=== PATIENT | male | born 1990 | race Caucasian/White ===

== ENCOUNTER 2021-12-29 18:56 | Inpatient (IN) | payer OTHER, SELFPAY ==
--- NOTE | ~2021-12-29 | XR_ITS ---
EXAMINATION: XR CHEST CLINICAL INFORMATION: Covid COMPARISON: None TECHNIQUE: Frontal portable view of the chest was obtained. 2205 hours FINDINGS: No significant abnormality is noted involving the heart, lungs, mediastinum, bony thorax or soft tissues. XR/XR chest 1V IMPRESSION: Unremarkable examination.
[2021-12-29 19:12] VITALS: BP 114/82; PULSE 103; RESP 20; TEMP 36.9; O2SAT 94; BMI 27.8
[2021-12-29 19:36] LABS: COVID-19 Test Positive (Negative)
--- NOTE | 2021-12-29 19:40 | ED.PSYCH ---
HPI - Psych General Chief Complaint: Psychiatric Symptoms Stated Complaint: SI Time Seen by Provider: 12/29/21 19:40 Source: patient Mode of arrival: ambulatory Limitations: no limitations History of Present Illness HPI Narrative: patient presenting to the emergency department for evaluation of suicidal ideations with a plan to overdose. He reports having anxiety and feeling sweaty, feeling like he is going through alcohol withdrawal. States that he drinks about 3 pt of vodka daily, and states that he last drank yesterday night. In addition, he has been injecting IV heroin. He is feeling overwhelmingly depressed, and anxious. he states that he was told by some friends that he had a seizure last night she does not recall, he does endorse a history of alcohol withdrawal seizures. He is reporting midsternal chest pain, that is constant, has been present for 10 days. Today he developed a headache and some nasal congestion. Denies fevers, chills, sore throat, shortness of breath, dyspnea on exertion, nausea, vomiting, abdominal pain, dysuria diarrhea, constipation, generalized weakness. Related Data Home Medications Medication Instructions Recorded Confirmed duloxetine 60 mg capsule,delayed 2 cap PO DAILY 12/29/21 12/29/21 release gabapentin 400 mg capsule 800 mg PO TID 12/29/21 12/29/21 quetiapine 200 mg tablet 1 tab PO BEDTIME 12/29/21 12/29/21 Allergies Allergy/AdvReac Type Severity Reaction Status Date / Time No Known Allergies Allergy Unverified 05/27/20 17:41 [No Known Allergies*] PMFSH Social History Social History Advance Directives: No Advance Directives Information Provided: No Physical Exam Vital Signs: Vital Signs: Last Vital Signs Temp 98.5 F 12/29/21 19:12 Pulse 103 H 12/29/21 19:12 Resp 20 12/29/21 19:12 BP 114/82 12/29/21 19:12 Pulse Ox 94 12/29/21 19:12 BMI result Body Mass Index 27.8 Course Course Course Narrative: Patient is a 31-year-old male with a past medical history of alcoholism, substance abuse, presenting to emergency department for evaluation of anxiety, diaphoresis, chest pain,, and suicidal ideations with to overdose. Patient with a history of alcoholism, reporting last alcohol consumption yesterday evening, history of alcohol with trial seizures in the past, reportedly had a seizure last night. Will obtain urine toxicology, ethanol level, placed on seizure precautions, and will monitor CIWA, obtain basic labs including CBC, BMP, troponin and EKG to evaluate for ACS/ ischemia, chest x-ray to exclude consolidation, infiltrate. Reevaluation(s) Reevaluation #1: Patient noted to be COVID-19 positive. states he has been vaccinated x2 with Moderna., uncertain of last vaccine date. Having difficulty obtaining labs, nursing staff attempting at this time. Patient very agitated and anxious, tremulous, plab to medicate with Ativan IM. Time: 20:00 Reevaluation #2: Patient signed out to Dr. Mares, pending labs and chest x-ray. Patient will additionally need to be evaluated by crisis and N for suicidal ideation. Time: 21:15 [facility] - Psych Lab Data Labs: Lab Results 12/29/21 12/29/21 12/29/21 Range/Units 19:25 19:37 19:37 Urine Color YELLOW Urine Appearance CLEAR Urine pH 5.5 (5.0-8.0) Ur Specific [place] >= 1.030 H (1.005-1.025) Urine Protein TRACE (NEG-TRACE) MG/DL Urine Glucose (UA) NEG (NEG) MG/DL Urine Ketones 5 (NEG) MG/DL Urine Blood NEG (NEG) Urine Nitrite NEG (NEG) Ur Leukocyte Esterase NEG (NEG) Urine Opiates Screen POSITIVE H (Not Detect) Urine Fentanyl Screen POSITIVE H (Not Detect) Ur Barbiturates Screen Not Detected (Not Detect) Ur Phencyclidine Scrn Not Detected (Not Detect) Ur Amphetamines Screen Not Detected (Not Detect) U Benzodiazepines Scrn Not Detected (Not Detect) Urine Cocaine Screen POSITIVE H (Not Detect) U Marijuana (THC) Screen Not Detected (Not Detect) COVID-19 (LUIS) Positive A (Negative) COVID-19 Clin Com See Note Discharge Plan Discharge Clinical Impression: COVID-19, Suicidal ideation, Polysubstance abuse Patient Disposition: Still a Patient Prescriptions: No Action gabapentin 400 mg capsule 800 mg PO TID 0RF duloxetine 60 mg capsule,delayed release(DR/EC) 2 cap PO DAILY 0RF quetiapine 200 mg tablet 1 tab PO BEDTIME 0RF
[2021-12-29 19:46] LABS: Appearance Urine CLEAR; Color Urine YELLOW; Glucose Urine UA NEG (NEG); Leukocyte Esterase Urine NEG (NEG); Nitrite Urine NEG (NEG); PH 5.5 (5.0-8.0); Specific Gravity - Urine >= 1.030 (1.005-1.025); Urine Blood NEG (NEG); Urine Ketones 5 MG/DL (NEG); Urine Protein TRACE MG/DL (NEG-TRACE)
[2021-12-29 19:59] LABS: Amphetamine Screen Urine Not Detected (Not Detect); Barbiturates, Urine Not Detected (Not Detect); Benzodiazepines Screen Urine Not Detected (Not Detect); Cannabinoid Screen Urine Not Detected (Not Detect); Cocaine Screen Urine POSITIVE (Not Detect); Fentanyl, urine POSITIVE (Not Detect); Opiate Screen Urine POSITIVE (Not Detect); Phencyclidine Screen Urine Not Detected (Not Detect)
--- NOTE | 2021-12-29 20:14 | ECG_ITS ---
Test Reason : EKG Blood Pressure : / mmHG Vent. Rate : 114 BPM Atrial Rate : 500 BPM P-R Int : 178 ms QRS Dur : 096 ms QT Int : 386 ms P-R-T Axes : 136 058 044 degrees QTc Int : 532 ms Poor data quality Undetermined rhythm Anterior infarct , age undetermined Prolonged QT Abnormal ECG When compared with ECG of 11-NOV-2019 16:29, Poor data quality in current ECG precludes serial comparison Repeat EKG Referred By: Nany Soriano Electronically Signed By:MARY AREVALO MD
[2021-12-29] MEDS: LORazepam 2 MG/ML VIAL 1 MG IM (20:33)
--- NOTE | 2021-12-29 21:00 | PC.NURSE ---
Pt medicated with IV ativan Pt very hard stick 2 RN attempted with no success Per REJI De Los Santos, ok to just get blood for now and hold on IV until blood work results oxygen equipment technician attempted with no success Another oxygen equipment technician currently attempting
--- NOTE | 2021-12-29 21:53 | PC.NURSE ---
Took report from Sarai to assume care of PT, no IV access established at this time after multiple attempts.
--- NOTE | 2021-12-29 21:54 | ECG_ITS ---
Test Reason : CHEST PAIN Blood Pressure : / mmHG Vent. Rate : 093 BPM Atrial Rate : 093 BPM P-R Int : 180 ms QRS Dur : 112 ms QT Int : 384 ms P-R-T Axes : 047 073 008 degrees QTc Int : 477 ms Normal sinus rhythm Anterior infarct (cited on or before 29-DEC-2021) Abnormal ECG When compared with ECG of 29-DEC-2021 20:25, Nonspecific T wave abnormality now evident in Inferior leads Referred By: Eliseo Mares Electronically Signed By:MARY AREVALO MD
--- NOTE | 2021-12-29 22:05 | PC.NURSE ---
Phlebotomy aware of pt
[2021-12-29 22:35] LABS: Basophils Percent Auto 0.6 % (0-2); Eosinophils Percent Auto 0.8 % (0-4); Hematocrit 38.5 % (42.0-52.0); Hemoglobin 13.7 g/dl (14.0-18.0); Imm Gran Abs Auto 0.02 X10*3/uL (0.00-0.03); Imm Gran Pct Auto 0.4 % (0.0-0.4); Lymphocytes Absolute Auto 1.4 X10*3/uL (1.2-4.9); Lymphocytes Percent Auto 28.1 % (20-40); MANUAL DIFF FLAG SCAN; Mean Corpuscular HGB Conc 35.6 g/dl (31.0-36.0); Mean Corpuscular Hemoglobin 28.5 pg (27.0-33.0); Monocytes Absolute Auto 0.5 X10*3/uL (0.1-1.2); Monocytes Percent Auto 8.8 % (2-11); Neutrophils Absolute Auto 3.2 x10*3/uL (2.0-8.3); Neutrophils Percent Auto 61.3 % (45-73); PLT CLUMP 1; Red Blood Count 4.81 X10*6/uL (4.60-5.80); Red Cell Distribution Width 12.2 % (11.0-16.0); SCAN SMEAR FLAG 1
[2021-12-29 22:51] LABS: Ethanol < 10 mg/dL
[2021-12-29 22:57] LABS: Alanine Aminotransferase 8 U/L (0-40); Albumin Level 4.4 g/dL (3.5-5.0); Alkaline Phosphatase 72 U/L (39-117); Anion Gap 14 (12-20); Aspartate Amino Transferase 20 U/L (5-37); Bilirubin Direct 0.3 mg/dL (0.0-0.5); Bilirubin Total 1.1 mg/dL (0.0-1.0); Blood Urea Nitrogen 17 mg/dL (9-16); Calcium 9.4 mg/dL (8.4-10.2); Carbon Dioxide 25 mmol/L (22-29); Chloride 102 mmol/L (96-108); Creatinine Clr Calc Pharmacy 131.5; Estimated Glomerular Filt Rate > 60; Glucose Random 111 mg/dL (60-115); Potassium 3.9 mmol/L (3.3-5.1); Sodium 137 mmol/L (135-145)
[2021-12-29 23:02] LABS: Troponin-I High Sensitivity < 3.5 ng/L (<3.5-35.0); White Blood Count 5.1 X10*3/uL (4.8-10.8)
[2021-12-29] MEDS: LORazepam 1 MG TABLET 2 MG PO (23:12)
[2021-12-29 23:21] LABS: Platelet Count 191 X10*3/uL (160-400)
[2021-12-29 23:22] LABS: SLIDE REVIEW VERIFIED
[2021-12-29] MEDS: Nicotine Polacrilex 2 MG GUM 4 MG BUCCAL (23:41)
[2021-12-29] MEDS: QUEtiapine Fumarate 200 MG TABLET PO (23:42)
[2021-12-29] MEDS: Gabapentin 400 MG CAPSULE 800 MG PO (23:42)
[2021-12-29] MEDS: methADONE HCl 20 MG/2 ML ORAL.CONC 40 MG PO (23:51)
--- NOTE | 2021-12-30 00:41 | PC.NURSE ---
This RN spoke with LAKHWINDER, referrel for this Pt is accepted, LAKHWINDER will eval CECIL.
[2021-12-30 02:18] VITALS: BP 130/64; PULSE 109; RESP 22; TEMP 37.1; O2SAT 99
[2021-12-30 03:45] VITALS: TEMP 38
--- NOTE | 2021-12-30 03:56 | PC.NURSE ---
Pt vomitting, Dr platt made aware, no IV, difficulty establishing access, multiple attempts
--- NOTE | 2021-12-30 04:00 | PC.NURSE ---
pt a&o, attempted to place Iv. pt refusing a this time. Jailene Forrest and provider aware.
[2021-12-30] MEDS: Ondansetron ODT 4 MG TAB.RAPDIS TRANSLINGU (04:05)
[2021-12-30] MEDS: LORazepam 1 MG TABLET 2 MG PO (04:26)
[2021-12-30] MEDS: Acetaminophen 325 MG TABLET 975 MG PO (04:27)
[2021-12-30 05:09] VITALS: BP 111/63; PULSE 98; RESP 20; TEMP 38.4; O2SAT 98
[2021-12-30] MEDS: Ibuprofen 600 MG TABLET PO (05:16)
[2021-12-30 06:39] VITALS: TEMP 37.4
--- NOTE | 2021-12-30 07:11 | PC.NURSE ---
Assumed care of pt at 0700. pt sleeping at this time. No signs of distress noted, sitter in place. Will continue to monitor.
[2021-12-30] MEDS: Gabapentin 400 MG CAPSULE 800 MG PO ×3 (09:26→22:18)
[2021-12-30] MEDS: DULoxetine HCl 60 MG CAPSULE.DR 120 MG PO (09:26)
[2021-12-30 11:16] VITALS: BP 119/58; PULSE 82; RESP 17; TEMP 37.1; O2SAT 97
--- NOTE | 2021-12-30 12:23 | PC.NURSE ---
Report to Katey JENSEN in the POD
--- NOTE | 2021-12-30 12:41 | PC.NURSE ---
Call placed to patient's methadone clinic. Confirmed patient last received last methadone dose 12/28/21 at 0810 of 100 mg. Methadone verification form completed and faxed to pharmacy.
--- NOTE | 2021-12-30 12:45 | PHA.MEDREC ---
Pharmacy Consult ? Medication Reconciliation Pharmacy has completed the medication reconciliation. Spoke with patient in the EDBH. Pt knew all medications he was talking.
[2021-12-30] MEDS: methADONE HCl 20 MG/2 ML ORAL.CONC 100 MG PO (15:15)
[2021-12-30] MEDS: LORazepam 1 MG TABLET PO (18:09)
[2021-12-30] MEDS: QUEtiapine Fumarate 200 MG TABLET PO (22:19)
--- NOTE | 2021-12-31 05:24 | PC.NURSE ---
Patient slept through the night, no distress observed/reported, medication compliant, VSS, Behavior calm and quiet, patient is Covid +, disposition per [facility] is section 12 inpatient bed search, no update on bed search, will continue to monitor.
--- NOTE | 2021-12-31 07:02 | PC.NURSE ---
patient appears to remain asleep at present respirations are even and unlabored patients appears in no distress
[2021-12-31] MEDS: DULoxetine HCl 60 MG CAPSULE.DR 120 MG PO (07:58)
[2021-12-31] MEDS: Nicotine Polacrilex 2 MG GUM 4 MG BUCCAL (07:58)
[2021-12-31] MEDS: Gabapentin 400 MG CAPSULE 800 MG PO ×3 (07:58→18:06)
[2021-12-31] MEDS: methADONE HCl 20 MG/2 ML ORAL.CONC 100 MG PO (07:59)
--- NOTE | 2021-12-31 12:39 | MHC.CARE ---
Pt seen by Benny for MSU, remains inpatient level of care. N continues bed search.
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
[2021-12-31] MEDS: Nicotine Polacrilex Lozenge 4 MG LOZENGE BUCCAL ×4 (14:15→22:10)
[2021-12-31] MEDS: LORazepam 1 MG TABLET PO ×2 (14:15→20:23)
[2021-12-31 19:39] LABS: COVID-19 Test Positive (Negative); IDNOW Serial# 16C4AD1C
[2021-12-31] MEDS: QUEtiapine Fumarate 200 MG TABLET PO (20:23)
[2021-12-31 21:09] VITALS: BP 125/85; PULSE 96; RESP 20; TEMP 37.7; O2SAT 95
[2022-01-01 06:22] VITALS: BP 91/52; PULSE 75; RESP 16; O2SAT 95
--- NOTE | 2022-01-01 06:35 | PC.NURSE ---
Patient slept through the night, no distress observed/reported, medication compliant, VSS, Behavior calm and quiet, patient is Covid +, disposition per [facility] is section 12 inpatient bed search, no update on bed search, will continue to monitor.
--- NOTE | 2022-01-01 07:28 | PC.NURSE ---
patient appears to remain asleep at present respirations are even and unlabored patient appears in no distress
--- NOTE | 2022-01-01 07:55 | MHC.CARE ---
Psych Consult completed
[2022-01-01] MEDS: methADONE HCl 20 MG/2 ML ORAL.CONC 100 MG PO (08:16)
[2022-01-01] MEDS: Nicotine Polacrilex Lozenge 4 MG LOZENGE BUCCAL ×5 (08:16→17:37)
[2022-01-01] MEDS: DULoxetine HCl 60 MG CAPSULE.DR 120 MG PO (08:17)
[2022-01-01] MEDS: LORazepam 1 MG TABLET PO ×3 (08:17→22:14)
[2022-01-01] MEDS: Gabapentin 400 MG CAPSULE 800 MG PO ×3 (08:17→17:38)
[2022-01-01] MEDS: QUEtiapine Fumarate 200 MG TABLET PO (22:14)
--- NOTE | 2022-01-02 06:44 | PC.NURSE ---
Patient slept through the night, no distress observed/reported, medication compliant, VSS, Behavior calm and quiet, patient is Covid +, disposition per [facility] is section 12 inpatient bed search, no update on bed search, asymptomatic of withdrawal, will continue to monitor.
--- NOTE | 2022-01-02 07:01 | PC.NURSE ---
patient appears to remain asleep at present respirations are even and unlabored patient appears in no distress
[2022-01-02] MEDS: Gabapentin 400 MG CAPSULE 800 MG PO ×3 (09:24→16:23)
[2022-01-02] MEDS: LORazepam 1 MG TABLET PO ×3 (09:24→20:38)
[2022-01-02] MEDS: DULoxetine HCl 60 MG CAPSULE.DR 120 MG PO (09:24)
[2022-01-02] MEDS: methADONE HCl 20 MG/2 ML ORAL.CONC 100 MG PO (09:25)
[2022-01-02 10:03] LABS: COVID-19 Test Positive (Negative)
[2022-01-02 10:07] VITALS: BP 114/77; PULSE 80; RESP 16; TEMP 37.1; O2SAT 96
[2022-01-02] MEDS: Nicotine Polacrilex Lozenge 4 MG LOZENGE BUCCAL ×4 (12:01→19:29)
--- NOTE | 2022-01-02 12:14 | PC.NURSE ---
patient talking back to staff disrepectfully when rediracted to his room (patient still covid positive)
[2022-01-02] MEDS: hydrOXYzine HCL 25 MG TABLET PO (17:19)
--- NOTE | 2022-01-02 17:52 | PC.NURSE ---
Patient resting comfortably in bed covid + bed search for SI with plan to OD. Aware of plan of care. Medicated for anxiety. Will continue to monitor.
[2022-01-02 19:28] VITALS: BP 138/87; PULSE 80; RESP 19; TEMP 37.5; O2SAT 96
[2022-01-02] MEDS: QUEtiapine Fumarate 200 MG TABLET PO (20:38)
--- NOTE | 2022-01-03 06:44 | PC.NURSE ---
Patient slept through the night, no distress observed/reported, medication compliant, VSS, Behavior calm and quiet, patient is Covid +, disposition per [facility] is section 12 inpatient bed search, no update on bed search, asymptomatic of withdrawal, will continue to monitor
--- NOTE | 2022-01-03 07:21 | PC.NURSE ---
patient appears to remain asleep at present respirations are even and unlabored p[atient appears in no distress
[2022-01-03 07:34] VITALS: BP 103/61; PULSE 73; RESP 13; TEMP 36.7; O2SAT 95
[2022-01-03] MEDS: Gabapentin 400 MG CAPSULE 800 MG PO ×3 (09:23→17:42)
[2022-01-03] MEDS: DULoxetine HCl 60 MG CAPSULE.DR 120 MG PO (09:23)
[2022-01-03] MEDS: methADONE HCl 20 MG/2 ML ORAL.CONC 100 MG PO (09:23)
[2022-01-03] MEDS: LORazepam 1 MG TABLET PO ×4 (09:23→20:41)
[2022-01-03] MEDS: Nicotine Polacrilex Lozenge 4 MG LOZENGE BUCCAL ×6 (09:24→20:36)
[2022-01-03] MEDS: Acetaminophen 325 MG TABLET 650 MG PO (17:39)
[2022-01-03 20:20] VITALS: BP 145/101; PULSE 108; TEMP 36.3; O2SAT 96
[2022-01-03] MEDS: QUEtiapine Fumarate 200 MG TABLET PO (20:42)
--- NOTE | 2022-01-04 00:28 | PC.NURSE ---
Patient is a 31 year old single white male, admitted as a CV admission to at 1631 and taken to group room B d/t being COVID positive. Patient will be on continuous equipment observation since he will be in a hospital bed that has electrical cords. Patient was medically cleared in the ED, evaluated by N and deemed in need of IPLOC secondary to SI with a plan to overdose on Heroin and also patient stated he drinks 3 pints of alcohol everyday. Patient is currently COVID positive but no other medical issues noted. Patient has a long history of substance abuse, IPLOC and detox treatments. According to the patient's intake he has a history of ETOH withdrawal seizures. He has been in the ED POD since 12/29/21 and has been monitored since that time. Patient has a history of noncompliance with medications and has been treated on M5 in the past. Patient said he does not have any current psychiatrist or therapist and his housing situation is unclear. Patient was not willing to sign releases due his current mental status and much information was obtained from his medical record and N assessment. Orders were obtained. Patient will be monitored for alcohol and opiate withdrawals.
[2022-01-04 06:00] VITALS: BP 96/54; PULSE 97; TEMP 36.6; O2SAT 97
[2022-01-04] MEDS: Gabapentin 400 MG CAPSULE 800 MG PO ×3 (08:32→16:01)
[2022-01-04] MEDS: DULoxetine HCl 60 MG CAPSULE.DR 120 MG PO (08:32)
[2022-01-04] MEDS: Nicotine Polacrilex Lozenge 4 MG LOZENGE BUCCAL ×3 (08:33→14:00)
[2022-01-04] MEDS: LORazepam 1 MG TABLET PO ×6 (08:33→21:35)
[2022-01-04] MEDS: methADONE HCl 20 MG/2 ML ORAL.CONC 100 MG PO (08:33)
[2022-01-04 09:32] LABS: Estimated Average Glucose 105 mg/dL; Hemoglobin A1c % 5.3 %
[2022-01-04 10:01] LABS: Cholesterol 148 mg/dL; HDL Cholesterol 24 mg/dL; LDL Cholesterol Calculated 75 mg/dl; Triglycerides 249 mg/dL
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
[2022-01-04] MEDS: hydrOXYzine HCL 25 MG TABLET PO (14:00)
[2022-01-04] MEDS: QUEtiapine Fumarate 25 MG TABLET PO (14:33)
[2022-01-04] MEDS: QUEtiapine Fumarate 100 MG TABLET PO (16:01)
[2022-01-04] MEDS: Nicotine Polacrilex 2 MG GUM 4 MG BUCCAL ×2 (16:12→19:52)
[2022-01-04 18:00] VITALS: BP 136/84; PULSE 102; RESP 16; TEMP 36.6; O2SAT 99
[2022-01-04] MEDS: QUEtiapine Fumarate 200 MG TABLET PO (19:46)
[2022-01-04] MEDS: traZODone HCL 50 MG TABLET PO (19:46)
[2022-01-05] MEDS: Folic Acid 1 MG TABLET PO (08:03)
[2022-01-05] MEDS: Thiamine HCL 100 MG TABLET PO (08:03)
[2022-01-05] MEDS: methADONE HCl 20 MG/2 ML ORAL.CONC 100 MG PO (08:03)
[2022-01-05] MEDS: Nicotine Polacrilex 2 MG GUM 4 MG BUCCAL ×5 (08:03→22:20)
[2022-01-05] MEDS: QUEtiapine Fumarate 100 MG TABLET PO ×2 (08:03→16:40)
[2022-01-05] MEDS: Multivitamin TABLET 1 TAB PO (08:03)
[2022-01-05] MEDS: Gabapentin 400 MG CAPSULE 800 MG PO ×3 (08:04→16:40)
[2022-01-05] MEDS: DULoxetine HCl 60 MG CAPSULE.DR 120 MG PO (08:04)
[2022-01-05] MEDS: LORazepam 1 MG TABLET PO ×3 (08:04→16:39)
[2022-01-05 08:17] VITALS: BP 98/61; PULSE 76; RESP 18; TEMP 36.4; O2SAT 97
--- NOTE | 2022-01-05 10:02 | P.PNPSI_ITS ---
Subjective Subjective Date of Service: 01/05/22 Reason For Visit: SI Interim History: Patient said that his mood is okay And he is without any SI. However he is feeling nauseous. He says he has a history of gastritis. Swamper offered to start medications to help him deal with this to which he agrees. Patient says that his PTSD is overall okay has not been too bothersome. Mental Status Exam Mental Status Exam Narrative: Pt is alert and oriented; behavior is cooperative; patient is not in distress; dressed in casual attire with adequate hygiene; mood is described as ok and affect constricted; eye contact appropriate; Speech is normal rate, volume and prosody and not pressured; no psychomotor agitation/retardation present; thought process is organized and goal directed; Thought content is on tx; otherwise pertinent to relevant topics and without any delusional content, paranoid ideations or grandiosity; denies any SI/HI. There is no evidence of perceptual disturbance. ?Patients insight and judgment appear intact. Diagnostics Vital Signs (24Hr): Vital Signs - 24 hr 01/04/22 18:00 01/05/22 08:17 Temperature 98 F 97.6 F Pulse Rate 102 H 76 Respiratory Rate 16 18 Blood Pressure 136/84 98/61 Pulse Oximetry 99 97 BMI result Body Mass Index 27.8 Labs Results: 12/29/21 22:25 12/29/21 22:25 Labs: Laboratory Results - last 48 hr 01/04/22 01/04/22 08:22 08:22 Estimat Average Glucose 105 Hemoglobin A1c % 5.3 Triglycerides 249 Cholesterol 148 LDL Cholesterol, Calc 75 HDL Cholesterol 24 Imaging Radiology Impressions: ITS Impressions Chest X-Ray 12/29/21 22:07 IMPRESSION: Unremarkable examination. Medications Medications Current Medications Acetaminophen (Acetaminophen 325 Mg Tablet) 650 mg PO Q6H PRN PRN Reason: Headache/Pain Mild Scale (1-3) Last Admin: 01/03/22 17:39 Dose: 650 mg Documented by: Al Hydroxide/Mg Hydroxide (Magnesium Hydrox/Alum Hydrox 30 Ml Oral.Susp) 30 ml PO Q6H PRN PRN Reason: Heartburn/Nausea Clonidine HCl (Clonidine Hcl 0.1 Mg Tablet) 0.1 mg PO TID PRN; Protocol PRN Reason: Hypertension Duloxetine HCl (Duloxetine Hcl 60 Mg Capsule.Dr) 120 mg PO DAILY [facility] Last Admin: 01/05/22 08:04 Dose: 120 mg Documented by: Folic Acid (Folic Acid 1 Mg Tablet) 1 mg PO DAILY [facility] Last Admin: 01/05/22 08:03 Dose: 1 mg Documented by: Gabapentin (Gabapentin 400 Mg Capsule) 800 mg PO 0900,1300,1700 [facility] Last Admin: 01/05/22 08:04 Dose: 800 mg Documented by: Hydroxyzine HCl (Hydroxyzine Hcl 25 Mg Tablet) 25 mg PO QID PRN PRN Reason: Anxiety Last Admin: 01/04/22 14:00 Dose: 25 mg Documented by: Lorazepam (Lorazepam 1 Mg Tablet) 1 mg PO Q2H PRN PRN Reason: Alcohol Withdrawal Last Admin: 01/04/22 19:46 Dose: 1 mg Documented by: Lorazepam (Lorazepam 1 Mg Tablet) 1 mg PO BID@0830,1630 [facility] Last Admin: 01/05/22 08:04 Dose: 1 mg Documented by: Magnesium Hydroxide (Milk Of Magnesia 30 Ml Oral.Susp) 30 ml PO DAILY PRN PRN Reason: Constipation Methadone HCl (Methadone Hcl 20 Mg/2 Ml Oral.Conc) 100 mg PO DAILY [facility] Last Admin: 01/05/22 08:03 Dose: 100 mg Documented by: Multivitamins/Vitamin C (Multivitamin Tablet) 1 tab PO DAILY [facility] Last Admin: 01/05/22 08:03 Dose: 1 tab Documented by: Nicotine Polacrilex (Nicotine Polacrilex 2 Mg Gum) 4 mg BUCCAL Q1H PRN PRN Reason: nicotine craving Last Admin: 01/05/22 08:03 Dose: 4 mg Documented by: Quetiapine Fumarate (Quetiapine Fumarate 200 Mg Tablet) 200 mg PO BEDTIME [facility] Last Admin: 01/04/22 19:46 Dose: 200 mg Documented by: Quetiapine Fumarate (Quetiapine Fumarate 25 Mg Tablet) 25 mg PO BID PRN PRN Reason: moderate anxiety Last Admin: 01/04/22 14:33 Dose: 25 mg Documented by: Quetiapine Fumarate (Quetiapine Fumarate 100 Mg Tablet) 100 mg PO BID@0900,1700 [facility] Last Admin: 01/05/22 08:03 Dose: 100 mg Documented by: Thiamine HCl (Thiamine Hcl 100 Mg Tablet) 100 mg PO DAILY [facility] Last Admin: 01/05/22 08:03 Dose: 100 mg Documented by: Trazodone HCl (Trazodone Hcl 50 Mg Tablet) 50 mg PO BEDTIME PRN PRN Reason: Insomnia Last Admin: 01/04/22 19:46 Dose: 50 mg Documented by: Allergies Allergies Allergy/AdvReac Type Severity Reaction Status Date / Time No Known Allergies Allergy Unverified 05/27/20 17:41 [No Known Allergies*] Assessment & Plan Assessment & Plan (1) Bipolar 1 disorder with moderate lindsey: Status: Acute Code(s): F31.12 - Bipolar disorder, current episode manic without psychotic features, moderate (2) Chronic post-traumatic stress disorder (PTSD): Status: Acute Code(s): F43.12 - Post-traumatic stress disorder, chronic (3) Alcohol dependence: Status: Acute Code(s): F10.20 - Alcohol dependence, uncomplicated (4) Alcohol withdrawal: Status: Acute Code(s): F10.239 - Alcohol dependence with withdrawal, unspecified (5) COVID-19: Status: Acute Code(s): U07.1 - COVID-19 Plan Patient is a 31-year-old male with history of Bipolar disorder,, PTSD and polysubstance abuse who presents for SI in the face of relapse. Who patient was recently sober while in the structured environment [facility]. His clonazepam was discontinued and he feels that was significant in the return or worsening of PTSD. Patient reports withdrawal is mostly complete. SI fully resolved. Wants to be on his home medications and return to [facility]. -continue with alcohol detox -restarting home medications -patient could probably do with either increased dose of Seroquel or some medication management however does not want any med changes. Patient interested in Acamprosat however after discussing this medication patient elects not to start 01/05 Patient still experiencing withdrawal symptoms; will continue CIWA and Ativan taper. Mood is okay; no SI PLAN: CV Q 15 minute checks Patient in isolation since COVID positive; positive test 12/29 CIWA for now though patient likely almost done with withdrawal; Ativan p.r.n. for breakthrough symptoms; On Ativan taper -start famotidine 20 mg b.i.d. -start Zofran 4 mg p.r.n. Restart home meds: Clonidine HCl 0.1 mg PO TID PRN (normally scheduled for anxiety but BP on low side) Duloxetine HCl? 120 mg PO DAILY [facility] Gabapentin 800 mg PO 0900,1300,1700 [facility] Methadone HCl 100 mg PO DAILY [facility] Quetiapine Fumarate ? 200 mg PO BEDTIME [facility] Quetiapine Fumarate 100 mg PO BID@0900,1700 [facility] Quetiapine Fumarate 25 mg PO BID PRN Reason: moderate anxiety Trazodone HCl ? 50 mg PO BEDTIME PRN I spent minutes with the patient and/or on the patient floor today, greater than?50% of which was spent counseling/coordinating care. Patient educated on: medical condition Informed Consent: understands Reason for contiued inpatient stay Substantial Risk for: rapid decompensation
[2022-01-05] MEDS: hydrOXYzine HCL 25 MG TABLET PO (12:35)
[2022-01-05] MEDS: QUEtiapine Fumarate 25 MG TABLET PO (12:35)
[2022-01-05] MEDS: Ondansetron ODT 4 MG TAB.RAPDIS TRANSLINGU ×2 (14:46→17:58)
[2022-01-05] MEDS: Famotidine 20 MG TABLET PO ×2 (14:46→22:20)
[2022-01-05 18:00] VITALS: BP 99/64; PULSE 89; RESP 18; TEMP 36.5; O2SAT 95
[2022-01-05] MEDS: QUEtiapine Fumarate 200 MG TABLET PO (22:20)
[2022-01-06] MEDS: methADONE HCl 20 MG/2 ML ORAL.CONC 100 MG PO (08:07)
[2022-01-06] MEDS: LORazepam 1 MG TABLET PO ×2 (08:08→16:29)
[2022-01-06] MEDS: DULoxetine HCl 60 MG CAPSULE.DR 120 MG PO (08:08)
[2022-01-06] MEDS: Multivitamin TABLET 1 TAB PO (08:08)
[2022-01-06] MEDS: Famotidine 20 MG TABLET PO ×2 (08:08→19:24)
[2022-01-06] MEDS: Folic Acid 1 MG TABLET PO (08:08)
[2022-01-06] MEDS: Nicotine Polacrilex 2 MG GUM 4 MG BUCCAL ×4 (08:08→19:24)
[2022-01-06] MEDS: Thiamine HCL 100 MG TABLET PO (08:08)
[2022-01-06] MEDS: QUEtiapine Fumarate 100 MG TABLET PO ×2 (08:08→16:28)
[2022-01-06] MEDS: Gabapentin 400 MG CAPSULE 800 MG PO ×3 (08:08→16:28)
[2022-01-06 08:20] VITALS: BP 116/74; PULSE 88; RESP 18; TEMP 36.3; O2SAT 97
[2022-01-06] MEDS: Acetaminophen 325 MG TABLET 650 MG PO (09:21)
--- NOTE | 2022-01-06 10:10 | HO.PSYCHPN ---
Subjective Subjective Date of Service: 01/06/22 Reason For Visit: SI Interim History: Patient says mood is overall okay however he still feeling sick most likely from COVID. He says he has been nauseous and vomited although that has seemed to resolve. Patient reports that he is hopeful about staying sober and wants to return to 1 of the programs preferably 1 he left but is open to others. Mental Status Exam Mental Status Exam Narrative: Pt is alert and oriented; behavior is cooperative; patient is not in distress; dressed in casual attire with adequate hygiene; mood is described as ok and affect constricted; eye contact appropriate; Speech is normal rate, volume and prosody and not pressured; no psychomotor agitation/retardation present; thought process is organized and goal directed; Thought content is on tx; otherwise pertinent to relevant topics and without any delusional content, paranoid ideations or grandiosity; denies any SI/HI. There is no evidence of perceptual disturbance. ?Patients insight and judgment appear intact. Diagnostics Vital Signs (24Hr): Vital Signs - 24 hr 01/05/22 18:00 01/06/22 08:20 Temperature 97.7 F 97.3 F Pulse Rate 89 88 Respiratory Rate 18 18 Blood Pressure 99/64 116/74 Pulse Oximetry 95 97 BMI result Body Mass Index 27.8 Labs Results: 12/29/21 22:25 01/07/22 11:13 Imaging Radiology Impressions: ITS Impressions Chest X-Ray 12/29/21 22:07 IMPRESSION: Unremarkable examination. Medications Medications Current Medications Acetaminophen (Acetaminophen 325 Mg Tablet) 650 mg PO Q6H PRN PRN Reason: Headache/Pain Mild Scale (1-3) Last Admin: 01/06/22 09:21 Dose: 650 mg Documented by: Al Hydroxide/Mg Hydroxide (Magnesium Hydrox/Alum Hydrox 30 Ml Oral.Susp) 30 ml PO Q6H PRN PRN Reason: Heartburn/Nausea Benzocaine (Throat Lozenge, Medicated Lozenge) 1 lozenge MUCOUS MEM Q2H PRN PRN Reason: Sore Throat Clonidine HCl (Clonidine Hcl 0.1 Mg Tablet) 0.1 mg PO TID PRN; Protocol PRN Reason: Anxiety Duloxetine HCl (Duloxetine Hcl 60 Mg Capsule.Dr) 120 mg PO DAILY [facility] Last Admin: 01/06/22 08:08 Dose: 120 mg Documented by: Famotidine (Famotidine 20 Mg Tablet) 20 mg PO BID [facility] Last Admin: 01/06/22 08:08 Dose: 20 mg Documented by: Folic Acid (Folic Acid 1 Mg Tablet) 1 mg PO DAILY [facility] Last Admin: 01/06/22 08:08 Dose: 1 mg Documented by: Gabapentin (Gabapentin 400 Mg Capsule) 800 mg PO 0900,1300,1700 [facility] Last Admin: 01/06/22 08:08 Dose: 800 mg Documented by: Hydroxyzine HCl (Hydroxyzine Hcl 25 Mg Tablet) 25 mg PO QID PRN PRN Reason: Anxiety Last Admin: 01/05/22 12:35 Dose: 25 mg Documented by: Lorazepam (Lorazepam 1 Mg Tablet) 1 mg PO BID@0830,1630 [facility] Stop: 01/06/22 23:55 Last Admin: 01/06/22 08:08 Dose: 1 mg Documented by: Lorazepam (Lorazepam 1 Mg Tablet) 1 mg PO Q2H PRN PRN Reason: CIWA =/>8 Lorazepam (Lorazepam 1 Mg Tablet) 1 mg PO DAILY [facility] Magnesium Hydroxide (Milk Of Magnesia 30 Ml Oral.Susp) 30 ml PO DAILY PRN PRN Reason: Constipation Methadone HCl (Methadone Hcl 20 Mg/2 Ml Oral.Conc) 100 mg PO DAILY [facility] Last Admin: 01/06/22 08:07 Dose: 100 mg Documented by: Multivitamins/Vitamin C (Multivitamin Tablet) 1 tab PO DAILY [facility] Last Admin: 01/06/22 08:08 Dose: 1 tab Documented by: Nicotine Polacrilex (Nicotine Polacrilex 2 Mg Gum) 4 mg BUCCAL Q1H PRN PRN Reason: nicotine craving Last Admin: 01/06/22 08:08 Dose: 4 mg Documented by: Ondansetron HCl (Ondansetron Odt 4 Mg Tab.Rapdis) 4 mg TRANSLINGU Q6H PRN PRN Reason: Nausea Last Admin: 01/05/22 17:58 Dose: 4 mg Documented by: Quetiapine Fumarate (Quetiapine Fumarate 200 Mg Tablet) 200 mg PO BEDTIME [facility] Last Admin: 01/05/22 22:20 Dose: 200 mg Documented by: Quetiapine Fumarate (Quetiapine Fumarate 25 Mg Tablet) 25 mg PO BID PRN PRN Reason: moderate anxiety Last Admin: 01/05/22 12:35 Dose: 25 mg Documented by: Quetiapine Fumarate (Quetiapine Fumarate 100 Mg Tablet) 100 mg PO BID@0900,1700 [facility] Last Admin: 01/06/22 08:08 Dose: 100 mg Documented by: Thiamine HCl (Thiamine Hcl 100 Mg Tablet) 100 mg PO DAILY [facility] Last Admin: 01/06/22 08:08 Dose: 100 mg Documented by: Trazodone HCl (Trazodone Hcl 50 Mg Tablet) 50 mg PO BEDTIME PRN PRN Reason: Insomnia Last Admin: 01/04/22 19:46 Dose: 50 mg Documented by: Allergies Allergies Allergy/AdvReac Type Severity Reaction Status Date / Time No Known Allergies Allergy Unverified 05/27/20 17:41 [No Known Allergies*] Assessment & Plan Assessment & Plan (1) Bipolar 1 disorder with moderate lindsey: Status: Acute Code(s): F31.12 - Bipolar disorder, current episode manic without psychotic features, moderate (2) Chronic post-traumatic stress disorder (PTSD): Status: Acute Code(s): F43.12 - Post-traumatic stress disorder, chronic (3) Alcohol dependence: Status: Acute Code(s): F10.20 - Alcohol dependence, uncomplicated (4) Alcohol withdrawal: Status: Acute Code(s): F10.239 - Alcohol dependence with withdrawal, unspecified (5) COVID-19: Status: Acute Code(s): U07.1 - COVID-19 Plan Patient is a 31-year-old male with history of Bipolar disorder,, PTSD and polysubstance abuse who presents for SI in the face of relapse. Who patient was recently sober while in the [facility] environment [facility]. His clonazepam was discontinued and he feels that was significant in the return or worsening of PTSD. Patient reports withdrawal is mostly complete. SI fully resolved. Wants to be on his home medications and return to [facility]. -continue with alcohol detox -restarting home medications -patient could probably do with either increased dose of Seroquel or some medication management however does not want any med changes. Patient interested in Acamprosat however after discussing this medication patient elects not to start 01/05 Patient still experiencing withdrawal symptoms; will continue CIWA and Ativan taper. Mood is okay; no SI PLAN: PLAN: CV Q 15 minute checks Patient in isolation since COVID positive; positive test 12/29 Withdrawal complete; dc CIWA -famotidine 20 mg b.i.d. -Zofran 4 mg p.r.n. Restart home meds: Clonidine HCl? 0.1 mg PO TID PRN (normally scheduled for anxiety but BP on low side) Duloxetine HCl? 120 mg PO DAILY [facility] Gabapentin? 800 mg PO 0900,1300,1700 [facility] Methadone HCl 100 mg PO DAILY [facility] Quetiapine Fumarate ? 200 mg PO BEDTIME [facility] Quetiapine Fumarate? 100 mg PO BID@0900,1700 [facility] Quetiapine Fumarate? 25 mg PO BID PRN Reason: moderate anxiety Trazodone HCl ? 50 mg PO BEDTIME PRN I spent minutes with the patient and/or on the patient floor today, greater than?50% of which was spent counseling/coordinating care. Patient educated on: substance abuse Informed Consent: understands Reason for contiued inpatient stay Substantial Risk for: rapid decompensation
[2022-01-06 16:42] VITALS: BP 117/78; PULSE 78; RESP 16; TEMP 36.6; O2SAT 99
[2022-01-06] MEDS: Throat Lozenge, Medicated LOZENGE 1 LOZENGE MUCOUS MEM (19:23)
[2022-01-06] MEDS: QUEtiapine Fumarate 200 MG TABLET PO (19:23)
[2022-01-06] MEDS: Ondansetron ODT 4 MG TAB.RAPDIS TRANSLINGU (19:23)
[2022-01-07 06:00] VITALS: BP 114/76; PULSE 83; RESP 18; TEMP 36.5; O2SAT 98
[2022-01-07] MEDS: DULoxetine HCl 60 MG CAPSULE.DR 120 MG PO (08:22)
[2022-01-07] MEDS: Folic Acid 1 MG TABLET PO (08:22)
[2022-01-07] MEDS: Nicotine Polacrilex 2 MG GUM 4 MG BUCCAL ×5 (08:22→21:12)
[2022-01-07] MEDS: Multivitamin TABLET 1 TAB PO (08:22)
[2022-01-07] MEDS: methADONE HCl 20 MG/2 ML ORAL.CONC 100 MG PO (08:22)
[2022-01-07] MEDS: Gabapentin 400 MG CAPSULE 800 MG PO ×3 (08:22→17:00)
[2022-01-07] MEDS: QUEtiapine Fumarate 100 MG TABLET PO ×2 (08:22→17:00)
[2022-01-07] MEDS: Thiamine HCL 100 MG TABLET PO (08:23)
[2022-01-07] MEDS: LORazepam 1 MG TABLET PO (08:23)
[2022-01-07] MEDS: Famotidine 20 MG TABLET PO ×2 (08:23→21:09)
[2022-01-07] MEDS: Acetaminophen 325 MG TABLET 650 MG PO (08:23)
[2022-01-07 11:46] LABS: Alanine Aminotransferase 12 U/L (0-40); Albumin Level 4.2 g/dL (3.5-5.0); Alkaline Phosphatase 72 U/L (39-117); Anion Gap 13 (12-20); Aspartate Amino Transferase 12 U/L (5-37); Bilirubin Total 0.2 mg/dL (0.0-1.0); Blood Urea Nitrogen 13 mg/dL (9-16); Calcium 9.4 mg/dL (8.4-10.2); Carbon Dioxide 27 mmol/L (22-29); Chloride 103 mmol/L (96-108); Creatinine Clr Calc Pharmacy 131.5; Estimated Glomerular Filt Rate > 60; Glucose Random 95 mg/dL (60-115); Magnesium 1.9 mg/dL (1.6-2.6); Potassium 4.4 mmol/L (3.3-5.1); Sodium 139 mmol/L (135-145); Total Protein 7.3 g/dL (6.5-8.0)
--- NOTE | 2022-01-07 12:22 | HO.PSYCHPN ---
Subjective Subjective Date of Service: 01/07/22 Reason For Visit: SI Subjective Notes: Conditional Voluntary Interim History: Patient on day 10 of covid dx. Asymptomatic mostly other than congestion and reports feeling physically tired. He reports feeling less depressed, less anxious. No SI/HI. no vh/ah. pin/needle sensation on bilat lower extremities on gabapentin 800mg po TID. CMP- no electrolyte imbalances noted given ongoing vomiting. Medication Compliance: Yes Side effects from medications: No Mental Status Exam Mental Status Exam Narrative: Pt is alert and oriented; behavior is cooperative; patient is not in distress; dressed in casual attire with adequate hygiene; mood is described as ok and affect constricted; eye contact appropriate; Speech is normal rate, volume and prosody and not pressured; no psychomotor agitation/retardation present; thought process is organized and goal directed; Thought content is on tx; otherwise pertinent to relevant topics and without any delusional content, paranoid ideations or grandiosity; denies any SI/HI. There is no evidence of perceptual disturbance. ?Patients insight and judgment appear intact. Diagnostics Vital Signs (24Hr): Vital Signs - 24 hr 01/08/22 16:50 01/09/22 06:00 Temperature 96.8 F 97.4 F Pulse Rate 70 91 Respiratory Rate 18 Blood Pressure 121/75 122/79 Pulse Oximetry 97 BMI result Body Mass Index 27.8 Labs Results: 12/29/21 22:25 01/07/22 11:13 Labs: Laboratory Results - last 48 hr 01/07/22 11:13 Sodium 139 Potassium 4.4 Chloride 103 Carbon Dioxide 27 Anion Gap 13 BUN 13 Creatinine 0.92 Estim Creat Clear Calc 131.5 Estimated GFR > 60 Random Glucose 95 Calcium 9.4 Magnesium 1.9 Total Bilirubin 0.2 AST 12 ALT 12 Alkaline Phosphatase 72 Total Protein 7.3 Albumin 4.2 Imaging Radiology Impressions: ITS Impressions Chest X-Ray 12/29/21 22:07 IMPRESSION: Unremarkable examination. Medications Medications Current Medications Acetaminophen (Acetaminophen 325 Mg Tablet) 650 mg PO Q6H PRN PRN Reason: Headache/Pain Mild Scale (1-3) Last Admin: 01/07/22 08:23 Dose: 650 mg Documented by: Al Hydroxide/Mg Hydroxide (Magnesium Hydrox/Alum Hydrox 30 Ml Oral.Susp) 30 ml PO Q6H PRN PRN Reason: Heartburn/Nausea Benzocaine (Throat Lozenge, Medicated Lozenge) 1 lozenge MUCOUS MEM Q2H PRN PRN Reason: Sore Throat Last Admin: 01/06/22 19:23 Dose: 1 lozenge Documented by: Clonidine HCl (Clonidine Hcl 0.1 Mg Tablet) 0.1 mg PO TID PRN; Protocol PRN Reason: Anxiety Duloxetine HCl (Duloxetine Hcl 60 Mg Capsule.Dr) 120 mg PO DAILY [facility] Last Admin: 01/08/22 08:03 Dose: 120 mg Documented by: Famotidine (Famotidine 20 Mg Tablet) 20 mg PO BID [facility] Last Admin: 01/08/22 20:40 Dose: 20 mg Documented by: Folic Acid (Folic Acid 1 Mg Tablet) 1 mg PO DAILY [facility] Last Admin: 01/08/22 08:03 Dose: 1 mg Documented by: Gabapentin (Gabapentin 400 Mg Capsule) 800 mg PO 0900,1300,1700 [facility] Last Admin: 01/08/22 16:17 Dose: 800 mg Documented by: Hydroxyzine HCl (Hydroxyzine Hcl 25 Mg Tablet) 25 mg PO QID PRN PRN Reason: Anxiety Last Admin: 01/07/22 13:34 Dose: 25 mg Documented by: Lorazepam (Lorazepam 1 Mg Tablet) 1 mg PO DAILY [facility] Last Admin: 01/08/22 08:03 Dose: 1 mg Documented by: Magnesium Hydroxide (Milk Of Magnesia 30 Ml Oral.Susp) 30 ml PO DAILY PRN PRN Reason: Constipation Methadone HCl (Methadone Hcl 20 Mg/2 Ml Oral.Conc) 100 mg PO DAILY [facility] Last Admin: 01/08/22 08:03 Dose: 100 mg Documented by: Multivitamins/Vitamin C (Multivitamin Tablet) 1 tab PO DAILY [facility] Last Admin: 01/08/22 08:03 Dose: 1 tab Documented by: Nicotine Polacrilex (Nicotine Polacrilex 2 Mg Gum) 4 mg BUCCAL Q1H PRN PRN Reason: nicotine craving Last Admin: 01/08/22 21:09 Dose: 4 mg Documented by: Ondansetron HCl (Ondansetron Odt 4 Mg Tab.Rapdis) 4 mg TRANSLINGU Q6H PRN PRN Reason: Nausea Last Admin: 01/07/22 17:05 Dose: 4 mg Documented by: Quetiapine Fumarate (Quetiapine Fumarate 200 Mg Tablet) 200 mg PO BEDTIME [facility] Last Admin: 01/08/22 20:40 Dose: 200 mg Documented by: Quetiapine Fumarate (Quetiapine Fumarate 25 Mg Tablet) 25 mg PO BID PRN PRN Reason: moderate anxiety Last Admin: 01/07/22 13:34 Dose: 25 mg Documented by: Quetiapine Fumarate (Quetiapine Fumarate 100 Mg Tablet) 100 mg PO BID@0900,1700 [facility] Last Admin: 01/08/22 16:17 Dose: 100 mg Documented by: Thiamine HCl (Thiamine Hcl 100 Mg Tablet) 100 mg PO DAILY [facility] Last Admin: 01/08/22 08:03 Dose: 100 mg Documented by: Trazodone HCl (Trazodone Hcl 50 Mg Tablet) 50 mg PO BEDTIME PRN PRN Reason: Insomnia Last Admin: 01/08/22 20:40 Dose: 50 mg Documented by: Allergies Allergies Allergy/AdvReac Type Severity Reaction Status Date / Time No Known Allergies Allergy Unverified 05/27/20 17:41 [No Known Allergies*] Assessment & Plan Assessment & Plan (1) Bipolar 1 disorder with moderate lindsey: Status: Acute Code(s): F31.12 - Bipolar disorder, current episode manic without psychotic features, moderate (2) Chronic post-traumatic stress disorder (PTSD): Status: Acute Code(s): F43.12 - Post-traumatic stress disorder, chronic (3) Alcohol dependence: Status: Acute Code(s): F10.20 - Alcohol dependence, uncomplicated (4) Alcohol withdrawal: Status: Acute Code(s): F10.239 - Alcohol dependence with withdrawal, unspecified (5) COVID-19: Status: Acute Code(s): U07.1 - COVID-19 Plan Patient is a 31-year-old male with history of Bipolar disorder,, PTSD and polysubstance abuse who presents for SI in the face of relapse. Who patient was recently sober while in the structured environment [facility]. His clonazepam was discontinued and he feels that was significant in the return or worsening of PTSD. Patient reports withdrawal is mostly complete. SI fully resolved. Wants to be on his home medications and return to [facility]. -continue with alcohol detox -restarting home medications -patient could probably do with either increased dose of Seroquel or some medication management however does not want any med changes. Patient interested in Acamprosat however after discussing this medication patient elects not to start 01/05 Patient still experiencing withdrawal symptoms; will continue CIWA and Ativan taper. Mood is okay; no SI PLAN: CV Q 15 minute checks Patient in isolation since COVID positive; positive test 12/29 CIWA for now though patient likely almost done with withdrawal; Ativan p.r.n. for breakthrough symptoms; On Ativan taper -start famotidine 20 mg b.i.d. -start Zofran 4 mg p.r.n. Restart home meds: Clonidine HCl 0.1 mg PO TID PRN (normally scheduled for anxiety but BP on low side) Duloxetine HCl? 120 mg PO DAILY [facility] Gabapentin 800 mg PO 0900,1300,1700 [facility] Methadone HCl 100 mg PO DAILY [facility] Quetiapine Fumarate ? 200 mg PO BEDTIME [facility] Quetiapine Fumarate 100 mg PO BID@0900,1700 [facility] Quetiapine Fumarate 25 mg PO BID PRN Reason: moderate anxiety Trazodone HCl ? 50 mg PO BEDTIME PRN 01/07 continue current medications. I spent minutes with the patient and/or on the patient floor today, greater than?50% of which was spent counseling/coordinating care. Reason for contiued inpatient stay Substantial Risk for: stable for discharge
[2022-01-07] MEDS: hydrOXYzine HCL 25 MG TABLET PO (13:34)
[2022-01-07] MEDS: QUEtiapine Fumarate 25 MG TABLET PO (13:34)
[2022-01-07 17:00] VITALS: BP 103/70; PULSE 75; TEMP 36.3
[2022-01-07] MEDS: Ondansetron ODT 4 MG TAB.RAPDIS TRANSLINGU (17:05)
[2022-01-07] MEDS: QUEtiapine Fumarate 200 MG TABLET PO (21:09)
[2022-01-08 06:00] VITALS: BP 127/84; PULSE 86; RESP 18; TEMP 36.4; O2SAT 97
[2022-01-08] MEDS: Multivitamin TABLET 1 TAB PO (08:03)
[2022-01-08] MEDS: LORazepam 1 MG TABLET PO (08:03)
[2022-01-08] MEDS: methADONE HCl 20 MG/2 ML ORAL.CONC 100 MG PO (08:03)
[2022-01-08] MEDS: Gabapentin 400 MG CAPSULE 800 MG PO ×3 (08:03→16:17)
[2022-01-08] MEDS: Folic Acid 1 MG TABLET PO (08:03)
[2022-01-08] MEDS: Thiamine HCL 100 MG TABLET PO (08:03)
[2022-01-08] MEDS: DULoxetine HCl 60 MG CAPSULE.DR 120 MG PO (08:03)
[2022-01-08] MEDS: QUEtiapine Fumarate 100 MG TABLET PO ×2 (08:03→16:17)
[2022-01-08] MEDS: Famotidine 20 MG TABLET PO ×2 (08:03→20:40)
[2022-01-08] MEDS: Nicotine Polacrilex 2 MG GUM 4 MG BUCCAL ×5 (08:04→21:09)
--- NOTE | 2022-01-08 11:19 | HO.PSYCHPN ---
Subjective Subjective Date of Service: 01/08/22 Reason For Visit: SI Subjective Notes: Conditional Voluntary Interim History: covid resolve- same c/o -Asymptomatic mostly other than congestion and reports feeling physically tired. He reports feeling less depressed, less anxious. No SI/HI. no vh/ah. pin/needle sensation on bilat lower extremities on gabapentin 800mg po TID but reports limited efficacy. Mostly in his room. encouraged to attend groups. Medication Compliance: Yes Side effects from medications: No Mental Status Exam Mental Status Exam Narrative: Pt is alert and oriented; behavior is cooperative; patient is not in distress; dressed in casual attire with adequate hygiene; mood is described as ok and affect constricted; eye contact appropriate; Speech is normal rate, volume and prosody and not pressured; no psychomotor agitation/retardation present; thought process is organized and goal directed; Thought content is on tx; otherwise pertinent to relevant topics and without any delusional content, paranoid ideations or grandiosity; denies any SI/HI. There is no evidence of perceptual disturbance. ?Patients insight and judgment appear intact. Patient Appearance: Fatigued and Disheveled Patient Orientation: Situation Level of Consciousness: Awake Patient Behavior: Fatigued Mood Description: Sad Affect Description: Sad Patient Cognition Impaired: No Ability to Follow Directions: Good Memory Description: Intact Diagnostics Vital Signs (24Hr): Vital Signs - 24 hr 01/08/22 16:50 01/09/22 06:00 Temperature 96.8 F 97.4 F Pulse Rate 70 91 Respiratory Rate 18 Blood Pressure 121/75 122/79 Pulse Oximetry 97 BMI result Body Mass Index 27.8 Labs Results: 12/29/21 22:25 01/07/22 11:13 Labs: Laboratory Results - last 48 hr 01/07/22 11:13 Sodium 139 Potassium 4.4 Chloride 103 Carbon Dioxide 27 Anion Gap 13 BUN 13 Creatinine 0.92 Estim Creat Clear Calc 131.5 Estimated GFR > 60 Random Glucose 95 Calcium 9.4 Magnesium 1.9 Total Bilirubin 0.2 AST 12 ALT 12 Alkaline Phosphatase 72 Total Protein 7.3 Albumin 4.2 Imaging Radiology Impressions: ITS Impressions Chest X-Ray 12/29/21 22:07 IMPRESSION: Unremarkable examination. Medications Medications Current Medications Acetaminophen (Acetaminophen 325 Mg Tablet) 650 mg PO Q6H PRN PRN Reason: Headache/Pain Mild Scale (1-3) Last Admin: 01/07/22 08:23 Dose: 650 mg Documented by: Al Hydroxide/Mg Hydroxide (Magnesium Hydrox/Alum Hydrox 30 Ml Oral.Susp) 30 ml PO Q6H PRN PRN Reason: Heartburn/Nausea Benzocaine (Throat Lozenge, Medicated Lozenge) 1 lozenge MUCOUS MEM Q2H PRN PRN Reason: Sore Throat Last Admin: 01/06/22 19:23 Dose: 1 lozenge Documented by: Clonidine HCl (Clonidine Hcl 0.1 Mg Tablet) 0.1 mg PO TID PRN; Protocol PRN Reason: Anxiety Duloxetine HCl (Duloxetine Hcl 60 Mg Capsule.Dr) 120 mg PO DAILY [facility] Last Admin: 01/08/22 08:03 Dose: 120 mg Documented by: Famotidine (Famotidine 20 Mg Tablet) 20 mg PO BID [facility] Last Admin: 01/08/22 20:40 Dose: 20 mg Documented by: Folic Acid (Folic Acid 1 Mg Tablet) 1 mg PO DAILY [facility] Last Admin: 01/08/22 08:03 Dose: 1 mg Documented by: Gabapentin (Gabapentin 400 Mg Capsule) 800 mg PO 0900,1300,1700 [facility] Last Admin: 01/08/22 16:17 Dose: 800 mg Documented by: Hydroxyzine HCl (Hydroxyzine Hcl 25 Mg Tablet) 25 mg PO QID PRN PRN Reason: Anxiety Last Admin: 01/07/22 13:34 Dose: 25 mg Documented by: Lorazepam (Lorazepam 1 Mg Tablet) 1 mg PO DAILY [facility] Last Admin: 01/08/22 08:03 Dose: 1 mg Documented by: Magnesium Hydroxide (Milk Of Magnesia 30 Ml Oral.Susp) 30 ml PO DAILY PRN PRN Reason: Constipation Methadone HCl (Methadone Hcl 20 Mg/2 Ml Oral.Conc) 100 mg PO DAILY [facility] Last Admin: 01/08/22 08:03 Dose: 100 mg Documented by: Multivitamins/Vitamin C (Multivitamin Tablet) 1 tab PO DAILY [facility] Last Admin: 01/08/22 08:03 Dose: 1 tab Documented by: Nicotine Polacrilex (Nicotine Polacrilex 2 Mg Gum) 4 mg BUCCAL Q1H PRN PRN Reason: nicotine craving Last Admin: 01/08/22 21:09 Dose: 4 mg Documented by: Ondansetron HCl (Ondansetron Odt 4 Mg Tab.Rapdis) 4 mg TRANSLINGU Q6H PRN PRN Reason: Nausea Last Admin: 01/07/22 17:05 Dose: 4 mg Documented by: Quetiapine Fumarate (Quetiapine Fumarate 200 Mg Tablet) 200 mg PO BEDTIME [facility] Last Admin: 01/08/22 20:40 Dose: 200 mg Documented by: Quetiapine Fumarate (Quetiapine Fumarate 25 Mg Tablet) 25 mg PO BID PRN PRN Reason: moderate anxiety Last Admin: 01/07/22 13:34 Dose: 25 mg Documented by: Quetiapine Fumarate (Quetiapine Fumarate 100 Mg Tablet) 100 mg PO BID@0900,1700 [facility] Last Admin: 01/08/22 16:17 Dose: 100 mg Documented by: Thiamine HCl (Thiamine Hcl 100 Mg Tablet) 100 mg PO DAILY [facility] Last Admin: 01/08/22 08:03 Dose: 100 mg Documented by: Trazodone HCl (Trazodone Hcl 50 Mg Tablet) 50 mg PO BEDTIME PRN PRN Reason: Insomnia Last Admin: 01/08/22 20:40 Dose: 50 mg Documented by: Allergies Allergies Allergy/AdvReac Type Severity Reaction Status Date / Time No Known Allergies Allergy Unverified 05/27/20 17:41 [No Known Allergies*] Assessment & Plan Assessment & Plan (1) Bipolar 1 disorder with moderate lindsey: Status: Acute Code(s): F31.12 - Bipolar disorder, current episode manic without psychotic features, moderate (2) Chronic post-traumatic stress disorder (PTSD): Status: Acute Code(s): F43.12 - Post-traumatic stress disorder, chronic (3) Alcohol dependence: Status: Acute Code(s): F10.20 - Alcohol dependence, uncomplicated (4) Alcohol withdrawal: Status: Acute Code(s): F10.239 - Alcohol dependence with withdrawal, unspecified (5) COVID-19: Status: Acute Code(s): U07.1 - COVID-19 Plan Patient is a 31-year-old male with history of Bipolar disorder,, PTSD and polysubstance abuse who presents for SI in the face of relapse. Who patient was recently sober while in the [facility] environment [facility]. His clonazepam was discontinued and he feels that was significant in the return or worsening of PTSD. Patient reports withdrawal is mostly complete. SI fully resolved. Wants to be on his home medications and return to [facility]. -continue with alcohol detox -restarting home medications -patient could probably do with either increased dose of Seroquel or some medication management however does not want any med changes. Patient interested in Acamprosat however after discussing this medication patient elects not to start 01/05 Patient still experiencing withdrawal symptoms; will continue CIWA and Ativan taper. Mood is okay; no SI PLAN: CV Q 15 minute checks Patient in isolation since COVID positive; positive test 12/29 CIWA for now though patient likely almost done with withdrawal; Ativan p.r.n. for breakthrough symptoms; On Ativan taper -start famotidine 20 mg b.i.d. -start Zofran 4 mg p.r.n. Restart home meds: Clonidine HCl 0.1 mg PO TID PRN (normally scheduled for anxiety but BP on low side) Duloxetine HCl? 120 mg PO DAILY [facility] Gabapentin 800 mg PO 0900,1300,1700 [facility] Methadone HCl 100 mg PO DAILY [facility] Quetiapine Fumarate ? 200 mg PO BEDTIME [facility] Quetiapine Fumarate 100 mg PO BID@0900,1700 [facility] Quetiapine Fumarate 25 mg PO BID PRN Reason: moderate anxiety Trazodone HCl ? 50 mg PO BEDTIME PRN 01/07 continue current medications. 01/08 continue current tx. I spent minutes with the patient and/or on the patient floor today, greater than?50% of which was spent counseling/coordinating care. Reason for contiued inpatient stay Substantial Risk for: stable for discharge
[2022-01-08 16:50] VITALS: BP 121/75; PULSE 70; TEMP 36
[2022-01-08] MEDS: QUEtiapine Fumarate 200 MG TABLET PO (20:40)
[2022-01-08] MEDS: traZODone HCL 50 MG TABLET PO (20:40)
[2022-01-09 06:00] VITALS: BP 122/79; PULSE 91; RESP 18; TEMP 36.3; O2SAT 97
[2022-01-09] MEDS: Gabapentin 400 MG CAPSULE 800 MG PO ×3 (08:27→16:08)
[2022-01-09] MEDS: LORazepam 1 MG TABLET PO (08:27)
[2022-01-09] MEDS: Thiamine HCL 100 MG TABLET PO (08:27)
[2022-01-09] MEDS: Famotidine 20 MG TABLET PO ×2 (08:27→19:50)
[2022-01-09] MEDS: QUEtiapine Fumarate 100 MG TABLET PO ×2 (08:27→16:08)
[2022-01-09] MEDS: Folic Acid 1 MG TABLET PO (08:27)
[2022-01-09] MEDS: DULoxetine HCl 60 MG CAPSULE.DR 120 MG PO (08:27)
[2022-01-09] MEDS: Multivitamin TABLET 1 TAB PO (08:27)
[2022-01-09] MEDS: methADONE HCl 20 MG/2 ML ORAL.CONC 100 MG PO (08:28)
[2022-01-09] MEDS: Nicotine Polacrilex 2 MG GUM 4 MG BUCCAL ×4 (09:12→19:53)
--- NOTE | 2022-01-09 10:12 | HO.PSYCHPN ---
Subjective Subjective Date of Service: 01/09/22 Reason For Visit: SI Interim History: Patient reports that he is feeling much better. Depression is gone and anxiety is much lower. He denies any SI at all and also feels that his COVID symptoms have resolved. Patient is excited to go to treatment facility with plan to discharge tomorrow. Mental Status Exam Mental Status Exam Narrative: Pt is alert and oriented; behavior is cooperative; patient is not in distress; dressed in casual attire with adequate hygiene; mood is described as good and affect congruent; eye contact appropriate; Speech is normal rate, volume and prosody and not pressured; no psychomotor agitation/retardation present; thought process is organized and goal directed; Thought content is on tx and discharge; otherwise pertinent to relevant topics and without any delusional content, paranoid ideations or grandiosity; denies any SI/HI. There is no evidence of perceptual disturbance. ?Patients insight and judgment appear intact. Diagnostics Vital Signs (24Hr): Vital Signs - 24 hr 01/08/22 16:50 01/09/22 06:00 Temperature 96.8 F 97.4 F Pulse Rate 70 91 Respiratory Rate 18 Blood Pressure 121/75 122/79 Pulse Oximetry 97 BMI result Body Mass Index 27.8 Labs Results: 12/29/21 22:25 01/07/22 11:13 Labs: Laboratory Results - last 48 hr 01/07/22 11:13 Sodium 139 Potassium 4.4 Chloride 103 Carbon Dioxide 27 Anion Gap 13 BUN 13 Creatinine 0.92 Estim Creat Clear Calc 131.5 Estimated GFR > 60 Random Glucose 95 Calcium 9.4 Magnesium 1.9 Total Bilirubin 0.2 AST 12 ALT 12 Alkaline Phosphatase 72 Total Protein 7.3 Albumin 4.2 Imaging Radiology Impressions: ITS Impressions Chest X-Ray 12/29/21 22:07 IMPRESSION: Unremarkable examination. Medications Medications Current Medications Acetaminophen (Acetaminophen 325 Mg Tablet) 650 mg PO Q6H PRN PRN Reason: Headache/Pain Mild Scale (1-3) Last Admin: 01/07/22 08:23 Dose: 650 mg Documented by: Al Hydroxide/Mg Hydroxide (Magnesium Hydrox/Alum Hydrox 30 Ml Oral.Susp) 30 ml PO Q6H PRN PRN Reason: Heartburn/Nausea Benzocaine (Throat Lozenge, Medicated Lozenge) 1 lozenge MUCOUS MEM Q2H PRN PRN Reason: Sore Throat Last Admin: 01/06/22 19:23 Dose: 1 lozenge Documented by: Clonidine HCl (Clonidine Hcl 0.1 Mg Tablet) 0.1 mg PO TID PRN; Protocol PRN Reason: Anxiety Duloxetine HCl (Duloxetine Hcl 60 Mg Capsule.Dr) 120 mg PO DAILY [facility] Last Admin: 01/09/22 08:27 Dose: 120 mg Documented by: Famotidine (Famotidine 20 Mg Tablet) 20 mg PO BID [facility] Last Admin: 01/09/22 08:27 Dose: 20 mg Documented by: Folic Acid (Folic Acid 1 Mg Tablet) 1 mg PO DAILY [facility] Last Admin: 01/09/22 08:27 Dose: 1 mg Documented by: Gabapentin (Gabapentin 400 Mg Capsule) 800 mg PO 0900,1300,1700 [facility] Last Admin: 01/09/22 08:27 Dose: 800 mg Documented by: Hydroxyzine HCl (Hydroxyzine Hcl 25 Mg Tablet) 25 mg PO QID PRN PRN Reason: Anxiety Last Admin: 01/07/22 13:34 Dose: 25 mg Documented by: Magnesium Hydroxide (Milk Of Magnesia 30 Ml Oral.Susp) 30 ml PO DAILY PRN PRN Reason: Constipation Methadone HCl (Methadone Hcl 20 Mg/2 Ml Oral.Conc) 100 mg PO DAILY [facility] Last Admin: 01/09/22 08:28 Dose: 100 mg Documented by: Multivitamins/Vitamin C (Multivitamin Tablet) 1 tab PO DAILY [facility] Last Admin: 01/09/22 08:27 Dose: 1 tab Documented by: Nicotine Polacrilex (Nicotine Polacrilex 2 Mg Gum) 4 mg BUCCAL Q1H PRN PRN Reason: nicotine craving Last Admin: 01/09/22 09:12 Dose: 4 mg Documented by: Ondansetron HCl (Ondansetron Odt 4 Mg Tab.Rapdis) 4 mg TRANSLINGU Q6H PRN PRN Reason: Nausea Last Admin: 01/07/22 17:05 Dose: 4 mg Documented by: Quetiapine Fumarate (Quetiapine Fumarate 200 Mg Tablet) 200 mg PO BEDTIME [facility] Last Admin: 01/08/22 20:40 Dose: 200 mg Documented by: Quetiapine Fumarate (Quetiapine Fumarate 25 Mg Tablet) 25 mg PO BID PRN PRN Reason: moderate anxiety Last Admin: 01/07/22 13:34 Dose: 25 mg Documented by: Quetiapine Fumarate (Quetiapine Fumarate 100 Mg Tablet) 100 mg PO BID@0900,1700 [facility] Last Admin: 01/09/22 08:27 Dose: 100 mg Documented by: Thiamine HCl (Thiamine Hcl 100 Mg Tablet) 100 mg PO DAILY [facility] Last Admin: 01/09/22 08:27 Dose: 100 mg Documented by: Trazodone HCl (Trazodone Hcl 50 Mg Tablet) 50 mg PO BEDTIME PRN PRN Reason: Insomnia Last Admin: 01/08/22 20:40 Dose: 50 mg Documented by: Allergies Allergies Allergy/AdvReac Type Severity Reaction Status Date / Time No Known Allergies Allergy Unverified 05/27/20 17:41 [No Known Allergies*] Assessment & Plan Assessment & Plan (1) Bipolar 1 disorder with moderate lindsey: Status: Acute Code(s): F31.12 - Bipolar disorder, current episode manic without psychotic features, moderate (2) Chronic post-traumatic stress disorder (PTSD): Status: Acute Code(s): F43.12 - Post-traumatic stress disorder, chronic (3) Alcohol dependence: Status: Acute Code(s): F10.20 - Alcohol dependence, uncomplicated (4) Alcohol withdrawal: Status: Acute Code(s): F10.239 - Alcohol dependence with withdrawal, unspecified (5) COVID-19: Status: Acute Code(s): U07.1 - COVID-19 Plan Patient is a 31-year-old male with history of Bipolar disorder,, PTSD and polysubstance abuse who presents for SI in the face of relapse. Who patient was recently sober while in the [facility] environment [facility]. His clonazepam was discontinued and he feels that was significant in the return or worsening of PTSD. Patient reports withdrawal is mostly complete. SI fully resolved. Wants to be on his home medications and return to [facility]. -continue with alcohol detox -restarting home medications -patient could probably do with either increased dose of Seroquel or some medication management however does not want any med changes. Patient interested in Acamprosat however after discussing this medication patient elects not to start 01/05 Patient still experiencing withdrawal symptoms; will continue CIWA and Ativan taper. Mood is okay; no SI 5/2 Depression Remains resolved and no SI; anxiety under control. Patient in a good mood and future oriented looking forward to going to substance abuse treatment plan at [facility]. Detox is complete and patient feels COVID symptoms have resolved. He is not in imminent risk for harm to self or others and his request for discharge honored. PLAN: PLAN: CV Q 15 minute checks out of isolation Withdrawal complete; dc CIWA -famotidine 20 mg b.i.d. -Zofran 4 mg p.r.n. Restart home meds: Clonidine HCl? 0.1 mg PO TID PRN (normally scheduled for anxiety but BP on low side) Duloxetine HCl? 120 mg PO DAILY [facility] Gabapentin? 800 mg PO 0900,1300,1700 [facility] Methadone HCl 100 mg PO DAILY [facility] Quetiapine Fumarate ? 200 mg PO BEDTIME [facility] Quetiapine Fumarate? 100 mg PO BID@0900,1700 [facility] Quetiapine Fumarate? 25 mg PO BID PRN Reason: moderate anxiety Trazodone HCl ? 50 mg PO BEDTIME PRN I spent minutes with the patient and/or on the patient floor today, greater than?50% of which was spent counseling/coordinating care. Reason for contiued inpatient stay Substantial Risk for: stable for discharge
[2022-01-09] MEDS: QUEtiapine Fumarate 25 MG TABLET PO (13:40)
--- NOTE | 2022-01-09 16:07 | PM.PSYDC ---
DS: Providers Provider Date of Service: 01/10/22 Date of admission: 01/03/22 15:56 Date of discharge: 01/10/22 Primary care physician: None Physician Attending physician on admission: Young Amaya Attending physician on discharge: Young Amaya DS: Diagnosis Discharge Diagnosis (1) Bipolar 1 disorder with moderate lindsey: Status: Acute (2) Chronic post-traumatic stress disorder (PTSD): Status: Acute (3) Alcohol dependence: Status: Resolved (4) Alcohol withdrawal: Status: Resolved (5) COVID-19: Status: Resolved DS: Medications Discharge Medications Home Medications: Home Medications Medication Instructions Recorded Confirmed methadone 10 mg/mL oral concentrate 100 mg PO DAILY 12/30/21 12/30/21 Previous Rx's Medication Instructions Recorded clonidine HCl 0.1 mg tablet 0.1 mg PO TID PRN 30 Days #90 tab 01/09/22 duloxetine 60 mg capsule,delayed 120 mg PO DAILY 30 Days #60 cap 01/09/22 release famotidine 20 mg tablet 20 mg PO BID 30 Days #60 tab 01/09/22 gabapentin 400 mg capsule 800 mg PO TID 30 Days #180 cap 01/09/22 hydroxyzine HCl 25 mg tablet 25 mg PO QID PRN 30 Days #120 tab 01/09/22 nicotine (polacrilex) 4 mg buccal 4 mg PO Q2H PRN 30 Days #108 ea 01/09/22 lozenge quetiapine 100 mg tablet 100 mg PO BID@0900,1700 30 Days 01/09/22 #60 tab quetiapine 200 mg tablet 200 mg PO BEDTIME 30 Days #30 tab 01/09/22 quetiapine 25 mg tablet 25 mg PO BID PRN 30 Days #60 tab 01/09/22 trazodone 50 mg tablet 50 mg PO BEDTIME PRN 30 Days #30 01/09/22 tab Mental Status Exam Mental Status Exam Narrative: Pt is alert and oriented; behavior is cooperative; patient is not in distress; dressed in casual attire with adequate hygiene; mood is described as good and affect congruent; eye contact appropriate; Speech is normal rate, volume and prosody and not pressured; no psychomotor agitation/retardation present; thought process is organized and goal directed; Thought content is on tx and discharge; otherwise pertinent to relevant topics and without any delusional content, paranoid ideations or grandiosity; denies any SI/HI. There is no evidence of perceptual disturbance. ?Patients insight and judgment are intact. Data Data Completed and Pending Completed studies during hospitalization [Text1]: 01/04/22 01/04/22 01/07/22 08:22 08:22 11:13 Sodium 139 Potassium 4.4 Chloride 103 Carbon Dioxide 27 Anion Gap 13 BUN 13 Creatinine 0.92 Estim Creat Clear Calc 131.5 Estimated GFR > 60 Random Glucose 95 Estimat Average Glucose 105 Hemoglobin A1c % 5.3 Calcium 9.4 Magnesium 1.9 Total Bilirubin 0.2 AST 12 ALT 12 Alkaline Phosphatase 72 Total Protein 7.3 Albumin 4.2 Triglycerides 249 Cholesterol 148 LDL Cholesterol, Calc 75 HDL Cholesterol 24 Imaging Diagnostic Imaging Impressions Chest X-Ray 12/29/21 22:07 IMPRESSION: Unremarkable examination. DS: Summary Hospital Course Hospital Course: Patient is a 31-year-old male with history of Bipolar disorder,, PTSD and polysubstance abuse who presents for SI in the face of relapse.? Who patient was recently sober while in the structured environment [facility].? His clonazepam was discontinued and he feels that was significant in the return or worsening of PTSD.? On admission, SI fully resolved. He was COVID positive so initially patient was quarantined to his room; patient had minor symptoms which resolved.? Wants to be on his home medications and return to [facility]. Detoxed from alcohol without incident using Ativan taper. Patient was restarted on his home medications and did not want any medication changes. Maintenance medication for substance abuse was discussed but patient ultimately decided against it not wanting to risks side effects. Patient was depressed at 1st and a little sullen, however with medications and rest on the unit, his depression subsided and mood improved. His SI remained fully resolved. Patient also felt that his it anxiety was significantly decreased. Towards end of admission he was in a good mood, with bright affect and future oriented looking forward to going to substance abuse treatment plan at [facility].? ? Patient was not in imminent risk for harm to self or others and his request for discharge honored. Time spent discussing smoking cessation with patient: 3 to 10 minutes Status at Discharge Functional status at discharge: independent ambulation Overall status at discharge: patient is back to baseline Time Spent with Patient Time attestation: Total time spent providing and/or coordinating discharge services: Time spent: Less than 30 minutes Discharge Plan Discharge Patient Disposition: Xfer Inpatient Rehab Fac Discharge Diagnosis: Bipolar type I, recurrent, severe most recent episode depressed in full remission Referrals: [facility] Placement: Iman Yoo [Other] - 01/10/22 12:30 pm Residential Referral: Berenice Orellana [Other] - 1 Week (Call [facility] to follow up on referral ) Physician,None [Primary Care Provider] - 1 Week (PT REFUSES TO GO TO A PCP) Discharge Medications: New quetiapine 100 mg Tablet 100 mg PO BID@0900,1700 30 Days Qty: 60 1RF quetiapine 25 mg Tablet 25 mg PO BID PRN (Reason: moderate anxiety) 30 Days Qty: 60 1RF trazodone 50 mg Tablet 50 mg PO BEDTIME PRN (Reason: Insomnia) 30 Days Qty: 30 1RF famotidine 20 mg Tablet 20 mg PO BID 30 Days Qty: 60 1RF Continued methadone 10 mg/mL Concentrate 100 mg PO DAILY Rx Instructions: dose verified 12/30/2021 gabapentin 400 mg capsule 800 mg PO TID 30 Days Qty: 180 1RF Changed clonidine HCl 0.1 mg tablet 0.1 mg PO TID PRN (Reason: anxiety) 30 Days Qty: 90 1RF quetiapine 200 mg tablet 200 mg PO BEDTIME 30 Days Qty: 30 1RF hydroxyzine HCl 25 mg tablet 25 mg PO QID PRN (Reason: Anxiety) 30 Days Qty: 120 1RF nicotine (polacrilex) 4 mg lozenge 4 mg PO Q2H PRN (Reason: Nicotine Cravings) 30 Days Qty: 108 1RF duloxetine 60 mg capsule,delayed release(DR/EC) 120 mg PO DAILY 30 Days Qty: 60 1RF Discharge Orders: Discharge Order (Routine); Ordered 01/10/22 Ordered By: Young Amaya Diet: regular diet Activity on Discharge: As tolerated Stand Alone Forms: Patient Portal Discharge page, Community Support Care Plan Goals: Maintain mood and safe behaviors Take medications as prescribed Continue to pursue sobriety Practice coping skills Continue with outpatient providers and reach out to them as needed Health Concerns: Mood stability and behaviors Sobriety Plan of Treatment: Follow up with your PCP, psychiatric provider and other outpatient providers regarding above concerns Take medications as prescribed Assessment: Risk assessment at time of discharge:? Patient was interviewed prior to discharge and found to be fully oriented and without any SI or HI. Patient has insight and demonstrates good judgment in terms of wanting to pursue treatment. Patient is not in imminent risk of harm to self or others and has a safety plan that includes presenting to the closest ER or calling 911 if feeling unsafe.? Patient has been observed closely by nursing and unit staff throughout admission; patient has not engaged in any behaviors that suggest dangerousness to self or others and has demonstrated appropriate behaviors and impulse control Discharge Date/Time: 01/10/22 12:15
[2022-01-09] MEDS: QUEtiapine Fumarate 200 MG TABLET PO (19:50)
[2022-01-09] MEDS: traZODone HCL 50 MG TABLET PO (19:54)
[2022-01-09 20:10] VITALS: BP 100/67; PULSE 78; TEMP 36.5; O2SAT 96
[2022-01-10] MEDS: DULoxetine HCl 60 MG CAPSULE.DR 120 MG PO (08:19)
[2022-01-10] MEDS: Gabapentin 400 MG CAPSULE 800 MG PO (08:19)
[2022-01-10] MEDS: Nicotine Polacrilex 2 MG GUM 4 MG BUCCAL ×2 (08:19→11:10)
[2022-01-10] MEDS: Thiamine HCL 100 MG TABLET PO (08:19)
[2022-01-10] MEDS: Multivitamin TABLET 1 TAB PO (08:19)
[2022-01-10] MEDS: methADONE HCl 20 MG/2 ML ORAL.CONC 100 MG PO (08:19)
[2022-01-10] MEDS: Famotidine 20 MG TABLET PO (08:19)
[2022-01-10] MEDS: QUEtiapine Fumarate 100 MG TABLET PO (08:19)
[2022-01-10] MEDS: Folic Acid 1 MG TABLET PO (08:19)
[2022-01-10 10:29] LABS: COVID-19 Test Negative (Negative); IDNOW Serial# 55D5AD1C
== END 2022-01-10 12:15 | DRG 753 ==
LOC: HO.ED 12-30 12:24 → HO.PM5 01-03 16:01
PROVIDERS: Clinical Nurse Specialist Psychiatric/Mental Health, Adult; Emergency Medicine Emergency Medical Services; Nurse Practitioner Family; Physician Assistant; Social Worker; Admitting Provider Psychiatry & Neurology Psychiatry; Emergency Provider Internal Medicine; Visit Provider Psychiatry & Neurology Psychiatry
DX: F31.2 Bipolar disorder, current episode manic severe with psychotic features (principal); U07.1 COVID-19; R45.851 Suicidal ideations; F11.20 Opioid dependence, uncomplicated; F17.210 Nicotine dependence, cigarettes, uncomplicated; F43.12 Post-traumatic stress disorder, chronic; F10.239 Alcohol dependence with withdrawal, unspecified; Z59.02 Unsheltered homelessness; Z71.6 Tobacco abuse counseling; Z79.899 Other long term (current) drug therapy
CPT/HCPCS: 36415; 71045; 80048; 80053; 80061; 80076; 80307; 81003; 82077; 83036; 83735; 84484; 85025; 87635; 93005; 99285; J2060

== ENCOUNTER 2023-01-28 22:54 | Inpatient (IN) | payer MEDICAID, OTHER, SELFPAY ==
[2023-01-28 23:03] VITALS: BP 130/81; PULSE 91; RESP 15; TEMP 36.2; O2SAT 95; BMI 23.5
--- NOTE | 2023-01-28 23:34 | PC.NURSE ---
this RN attempted draw patient 3 times, iLlian PCT attempted once and PAWAN Frausto attempted. Phlebotomy called
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
[2023-01-29 00:07] LABS: COVID-19 Test Negative (Negative); IDNOW Serial# 08D9AD1C
[2023-01-29 00:15] LABS: Basophils Percent Auto 0.5 % (0-2); Eosinophils Absolute Auto 0.1 X10*3/uL (0.0-0.4); Hematocrit 40.7 % (42.0-52.0); Hemoglobin 13.6 g/dl (14.0-18.0); Imm Gran Abs Auto 0.01 X10*3/uL (0.00-0.03); Imm Gran Pct Auto 0.2 % (0.0-0.4); Lymphocytes Absolute Auto 2.7 X10*3/uL (1.2-4.9); Lymphocytes Percent Auto 40.5 % (20-40); MANUAL DIFF FLAG SCAN; Mean Corpuscular HGB Conc 33.4 g/dl (31.0-36.0); Mean Corpuscular Hemoglobin 26.9 pg (27.0-33.0); Mean Corpuscular Volume 80.6 fL (80.0-98.0); Mean Platelet Volume 9.8 fL (9.4-12.4); Monocytes Absolute Auto 0.7 X10*3/uL (0.1-1.2); Monocytes Percent Auto 9.9 % (2-11); Neutrophils Absolute Auto 3.1 x10*3/uL (2.0-8.3); Neutrophils Percent Auto 46.9 % (45-73); PLT CLUMP 1; Red Blood Count 5.05 X10*6/uL (4.60-5.80); Red Cell Distribution Width 13.4 % (11.0-16.0); SCAN SMEAR FLAG 1
[2023-01-29 00:17] LABS: Platelet Count 209 X10*3/uL (160-400); White Blood Count 6.6 X10*3/uL (4.8-10.8)
[2023-01-29 00:27] LABS: Anion Gap 14 (12-20); Blood Urea Nitrogen 22 mg/dL (9-16); Calcium 9.6 mg/dL (8.4-10.2); Carbon Dioxide 26 mmol/L (22-29); Chloride 102 mmol/L (96-108); Creatinine Clr Calc Pharmacy 108.1; Estimated Glomerular Filt Rate > 60; Ethanol < 10 mg/dL; Glucose Random 100 mg/dL (60-115); Potassium 3.7 mmol/L (3.3-5.1); Sodium 138 mmol/L (135-145)
[2023-01-29 00:45] LABS: SLIDE REVIEW VERIFIED
--- NOTE | 2023-01-29 01:38 | ECG_ITS ---
Test Reason : med clearance Blood Pressure : / mmHG Vent. Rate : 067 BPM Atrial Rate : 067 BPM P-R Int : 186 ms QRS Dur : 122 ms QT Int : 448 ms P-R-T Axes : 000 139 162 degrees QTc Int : 473 ms Normal sinus rhythm with sinus arrhythmia Right axis deviation Inferior infarct , age undetermined ST & T wave abnormality, consider anterior ischemia Abnormal ECG When compared with ECG of 29-DEC-2021 21:54, Non-specific change in ST segment in Lateral leads Referred By: Vineet Santana Electronically Signed By:RON VARGAS
[2023-01-29 02:18] VITALS: BP 129/88; PULSE 86; RESP 16; O2SAT 97
[2023-01-29 02:45] LABS: Acetaminophen LAB < 17 mcg/mL (<30); Salicylate < 5.0 mg/dL (15-30)
--- NOTE | 2023-01-29 03:39 | PC.NURSE ---
patient sleeping at this time, respirations even and unlabored, skin pwd, no apparent distress Plan of care continues, urine sample needed for medical clearance in order to be evaluated by the CARE team
--- NOTE | 2023-01-29 06:41 | PC.NURSE ---
Pt continues to sleep, equal chest rise noted, skin pwd, no apparent distress Continue plan of care, need urine for medical clearance and then pt can be seen by CARE team
--- NOTE | 2023-01-29 08:26 | PC.NURSE ---
[facility] faxed a release of information sheet for methadone verification.
[2023-01-29 08:37] LABS: Appearance Urine Clear; Color Urine Dark Yellow; Glucose Urine UA Negative (Negative); Leukocyte Esterase Urine Negative (Negative); Nitrite Urine Negative (Negative); PH 5.5 (5.0-9.0); Specific Gravity - Urine >= 1.030 (1.005-1.025); Urine Blood Negative (Negative); Urine Ketones Trace mg/dL (Negative); Urine Protein Trace mg/dL (Neg-Trace)
[2023-01-29 08:43] LABS: Amphetamine Screen Urine Not Detected (Not Detect); Barbiturates, Urine POSITIVE (Not Detect); Benzodiazepines Screen Urine POSITIVE (Not Detect); Cannabinoid Screen Urine Not Detected (Not Detect); Cocaine Screen Urine POSITIVE (Not Detect); Fentanyl, urine POSITIVE (Not Detect); Opiate Screen Urine POSITIVE (Not Detect); Phencyclidine Screen Urine POSITIVE (Not Detect)
[2023-01-29 09:00] VITALS: BP 120/79; PULSE 99; RESP 18; TEMP 36.8; O2SAT 95
--- NOTE | 2023-01-29 09:27 | PC.NURSE ---
methadone dose verification form sent to pharmacy. Dose obtained from [facility].
--- NOTE | 2023-01-29 10:25 | HE.PHANOTE ---
METHADONE VERIFICATION FORM RECEIVED FOR 85MG FROM [facility]. LAST DOSE 85MG 01/27
[2023-01-29] MEDS: methADONE HCl 20 MG/2 ML ORAL.CONC 85 MG PO (10:53)
--- NOTE | 2023-01-29 10:55 | PHA.MEDREC ---
Pharmacy Consult ? Medication Reconciliation Pharmacy has reviewed the medication reconciliation done by RN. [facility] rec done incorrectly by RN, RN had hydroxyzine, quetiapine, gabapentin, cymbalta, famotidine, mirtazapine etc incorrectly. Reached out to provider
[2023-01-29] MEDS: hydrOXYzine HCL 25 MG TABLET 50 MG PO (11:23)
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
[2023-01-29] MEDS: Gabapentin 600 MG TABLET PO (14:55)
[2023-01-29] MEDS: Nicotine Polacrilex 2 MG GUM 4 MG BUCCAL (14:55)
[2023-01-29 18:28] VITALS: BP 133/75; PULSE 59; RESP 18; TEMP 36.6; O2SAT 98
[2023-01-29 20:00] VITALS: BP 120/71; PULSE 86; RESP 18; TEMP 36.3; O2SAT 96
[2023-01-29] MEDS: cloNIDine HCL 0.1 MG TABLET PO (23:07)
[2023-01-29] MEDS: LORazepam 1 MG TABLET PO (23:09)
--- NOTE | 2023-01-30 03:13 | PC.NURSE ---
Upon arrival to the unit, patient tremulous and nauseous. Unable to tolerate liquids. Scheduled clonidine and PRN ativan administered with sips of water. Patient was able to tolerate. Remaining medication were not administered due to patient actively dry heaving after taking medicine.
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
[2023-01-30 04:00] VITALS: RESP 18
[2023-01-30 06:00] VITALS: BP 112/62; PULSE 60; RESP 16; TEMP 36.7; O2SAT 98
[2023-01-30] MEDS: LORazepam 1 MG TABLET PO ×2 (06:33→11:20)
[2023-01-30 06:36] VITALS: BP 115/70; PULSE 78; RESP 18; TEMP 36.7; O2SAT 98
[2023-01-30 08:33] VITALS: BP 107/66; PULSE 68; RESP 18; TEMP 36.6; O2SAT 97
[2023-01-30] MEDS: Gabapentin 600 MG TABLET PO (08:34)
[2023-01-30] MEDS: cloNIDine HCL 0.1 MG TABLET PO (08:34)
[2023-01-30] MEDS: QUEtiapine Fumarate 200 MG TABLET PO (08:35)
[2023-01-30] MEDS: Omeprazole 20 MG CAPSULE.DR PO (08:35)
[2023-01-30] MEDS: buPROPion HCL 75 MG TABLET 150 MG PO (08:35)
[2023-01-30] MEDS: methADONE HCl 20 MG/2 ML ORAL.CONC 85 MG PO (08:35)
[2023-01-30 09:32] LABS: Alanine Aminotransferase 19 U/L (0-40); Albumin Level 4.3 g/dL (3.5-5.0); Alkaline Phosphatase 75 U/L (39-117); Anion Gap 13 (12-20); Aspartate Amino Transferase 13 U/L (5-37); Bilirubin Total 0.2 mg/dL (0.0-1.0); Blood Urea Nitrogen 16 mg/dL (9-16); Calcium 9.2 mg/dL (8.4-10.2); Carbon Dioxide 27 mmol/L (22-29); Chloride 105 mmol/L (96-108); Cholesterol 166 mg/dL; Creatinine Clr Calc Pharmacy 101.3; Estimated Glomerular Filt Rate > 60; Glucose Fasting 111 mg/dL (60-99); HDL Cholesterol 34 mg/dL; LDL Cholesterol Calculated 106 mg/dl; Potassium 4.5 mmol/L (3.3-5.1); Sodium 140 mmol/L (135-145); Total Protein 6.7 g/dL (6.5-8.0); Triglycerides 133 mg/dL
[2023-01-30] MEDS: Nicotine Polacrilex 2 MG GUM 4 MG BUCCAL (09:37)
[2023-01-30 12:00] VITALS: BP 109/69; PULSE 63; RESP 20; TEMP 36.6; O2SAT 96
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
--- NOTE | 2023-01-30 15:23 | PC.NURSE ---
Room search completed by 2 male staff JF, DP, KM RN, DD RN, and security. Empty waxy bag found in room with label [place].
--- NOTE | 2023-01-30 15:29 | PC.NURSE ---
Patient appears sedate, 3pm Gabapentin held per .
--- NOTE | 2023-01-30 16:24 | PC.NURSE ---
Vitals taken as ordered, patient sedate, appears to be dozing off while vs being taken. 1:1 maintained.
--- NOTE | 2023-01-30 16:43 | PC.NURSE ---
VS maintained q 4 hours per MD order. VSS. No reported or observed diaphoresis. Patient c/o nausea, upset stomach. Was able to tolerate ice cream and bread. Calm, not observed to be restless. Observed with stumble when ambulating rea. Pupils appear to be normal. C/O muscle discomfort. No running nose or tearing observed. No yawning or piloerection of skin. Skin warm and dry. No tremor observed.
[2023-01-30 18:00] VITALS: RESP 18
--- NOTE | 2023-01-30 21:10 | PC.NURSE ---
pt refused EKG, saying he wanted to sleep and told this keno writer to stop bothering him
--- NOTE | 2023-01-30 23:03 | PC.NURSE ---
pt refused vital signs and told the nurse to go away and flung up his hands. pt also refused night meds, saying i want to sleep, leave me alone . when nurse asked pt about an EKG, pt rolled over and didn't speak.
[2023-01-31] MEDS: QUEtiapine Fumarate 100 MG TABLET PO (08:04)
[2023-01-31] MEDS: Omeprazole 20 MG CAPSULE.DR PO (08:04)
[2023-01-31] MEDS: Gabapentin 600 MG TABLET PO (08:04)
[2023-01-31] MEDS: methADONE HCl 20 MG/2 ML ORAL.CONC 85 MG PO (08:05)
[2023-01-31] MEDS: hydrOXYzine HCL 50 MG TABLET PO (08:05)
[2023-01-31] MEDS: buPROPion HCL 75 MG TABLET 150 MG PO (08:05)
[2023-01-31 08:39] VITALS: BP 132/78; PULSE 70; RESP 18; TEMP 36.7; O2SAT 98
[2023-01-31] MEDS: Nicotine Polacrilex 2 MG GUM 4 MG BUCCAL (09:13)
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
--- NOTE | 2023-01-31 10:46 | PC.NURSE ---
Patient aware of discharge. Requesting to be dropped off at court house, then requested to be dropped off at the DTA office. All belongings taken out of room and with patient. Will need to obtain items from [facility] on way out of building. Declined to review discharge paperwork stating he needs to go. Last use letter given, educated not to open seal. Spoke to PETR VALIENTE at [facility], notified of discharge and last dose. Crisis numbers provided to patient. Narcan single dose pack given for patient use as needed.
== END 2023-01-31 10:20 | disposition home or self-care (01) | DRG 755 ==
LOC: HO.ED 01-29 01:59 → HO.PADLT16 01-29 18:31
PROVIDERS: Physician Assistant; Admitting Provider Psychiatry & Neurology Psychiatry; Emergency Provider Emergency Medicine; Visit Provider Psychiatry & Neurology Psychiatry
DX: F43.12 Post-traumatic stress disorder, chronic (principal); R45.851 Suicidal ideations; F14.10 Cocaine abuse, uncomplicated; F13.10 Sedative, hypnotic or anxiolytic abuse, uncomplicated; F10.20 Alcohol dependence, uncomplicated; F17.210 Nicotine dependence, cigarettes, uncomplicated; Z71.6 Tobacco abuse counseling; F11.20 Opioid dependence, uncomplicated; Z20.822 Contact with and (suspected) exposure to COVID-19; Z79.899 Other long term (current) drug therapy
CPT/HCPCS: 36415; 80048; 80053; 80061; 80143; 80179; 80307; 81003; 85025; 87635; 93005; 99285; S9485

== ENCOUNTER 2023-02-24 20:37 | Emergency (ER) | payer OTHER, MEDICAID, SELFPAY ==
--- NOTE | ~2023-02-24 | CT_ITS ---
EXAMINATION: NONCONTRAST HEAD CT NONCONTRAST CERVICAL SPINE CT INDICATION INFORMATION: EtOH. Fall. COMPARISON: None TECHNIQUE: Separate noncontrast CT examinations of the head and cervical spine were performed. Coronal and sagittal images were created for each examination at the technologist workstation. This CT examination was performed using dose optimization techniques as appropriate, variously including the following: *Automated exposure control *Adjustment of mA and/or kV according to patient size (this includes techniques or standardized protocols for targeted exams where dose is matched to indication/reason for exam; i.e. extremities or head) *Use of iterative reconstruction technique DLP: 1592 mGy-cm FINDINGS: Head: There is no evidence of acute intracranial hemorrhage or territorial infarction. No abnormal mass effect or midline shift is seen. Coombs to white matter differentiation is well preserved. No extra-axial fluid collections are identified. No hydrocephalus. No significant volume loss. There is no abnormal attenuation within the brain parenchyma. No acute osseous or soft tissue abnormality. The mastoid air cells and visualized portions of the paranasal sinuses are well aerated. Cervical spine: There is anatomic alignment of the vertebral bodies and posterior elements. The atlantoaxial and atlantooccipital articulations are intact. Vertebral body heights and intervertebral disc spaces are maintained. No evidence of acute fracture. No prevertebral soft tissue swelling. Visualized portions of the lung apices are unremarkable. The thyroid gland is unremarkable. CT/CT head/brain wo IV con IMPRESSION: * No acute intracranial bleed or territorial infarction. * No acute fractures of the calvarium or cervical spine.
--- NOTE | ~2023-02-24 | CT_ITS ---
EXAMINATION: NONCONTRAST HEAD CT NONCONTRAST CERVICAL SPINE CT INDICATION INFORMATION: EtOH. Fall. COMPARISON: None TECHNIQUE: Separate noncontrast CT examinations of the head and cervical spine were performed. Coronal and sagittal images were created for each examination at the technologist workstation. This CT examination was performed using dose optimization techniques as appropriate, variously including the following: *Automated exposure control *Adjustment of mA and/or kV according to patient size (this includes techniques or standardized protocols for targeted exams where dose is matched to indication/reason for exam; i.e. extremities or head) *Use of iterative reconstruction technique DLP: 1592 mGy-cm FINDINGS: Head: There is no evidence of acute intracranial hemorrhage or territorial infarction. No abnormal mass effect or midline shift is seen. Coombs to white matter differentiation is well preserved. No extra-axial fluid collections are identified. No hydrocephalus. No significant volume loss. There is no abnormal attenuation within the brain parenchyma. No acute osseous or soft tissue abnormality. The mastoid air cells and visualized portions of the paranasal sinuses are well aerated. Cervical spine: There is anatomic alignment of the vertebral bodies and posterior elements. The atlantoaxial and atlantooccipital articulations are intact. Vertebral body heights and intervertebral disc spaces are maintained. No evidence of acute fracture. No prevertebral soft tissue swelling. Visualized portions of the lung apices are unremarkable. The thyroid gland is unremarkable. CT/CT cervical spine wo IV con IMPRESSION: * No acute intracranial bleed or territorial infarction. * No acute fractures of the calvarium or cervical spine.
[2023-02-24 20:41] VITALS: BP 110/70; BP 140/88; PULSE 79; PULSE 85; RESP 12; TEMP 36.9; O2SAT 95; O2SAT 97; BMI 29.8
--- NOTE | 2023-02-24 21:11 | ED.OVERDOSE ---
HPI - Overdose General Chief Complaint: Fall Stated Complaint: ETOH, FALL, DRUG USE Time Seen by Provider: 02/24/23 21:04 Source: EMS Mode of arrival: EMS Limitations: other (Intoxicated) History of Present Illness HPI Narrative: Patient comes to the emergency room via ambulance. Patient was found on the ground by police department. Patient admits to using alcohol and heroin. Patient reports that he does not remember if he fell. Denies suicidal or homicidal ideation. Patient able to answer some questions. However, patient is too intoxicated to give any full history Related Data Home Medications Medication Instructions Recorded Confirmed bupropion HCl 75 mg tablet 150 mg PO BID 01/29/23 01/29/23 clonidine HCl 0.1 mg tablet 0.1 mg PO BID 01/29/23 01/29/23 gabapentin 600 mg tablet 600 mg PO TID 01/29/23 01/29/23 hydroxyzine pamoate 50 mg capsule 100 mg PO BID 01/29/23 01/29/23 methadone 10 mg/mL oral concentrate 85 mg PO DAILY 01/29/23 01/29/23 mirtazapine 15 mg tablet 15 mg PO BEDTIME 01/29/23 01/29/23 pantoprazole 40 mg tablet,delayed 40 mg PO DAILY 01/29/23 01/29/23 release Previous Rx's Medication Instructions Recorded hydroxyzine HCl 50 mg tablet 100 mg PO BEDTIME #0 tabs 01/31/23 naloxone 4 mg/actuation nasal 4 mg intranasal (ALT) ONCE PRN 01/31/23 spray (Narcan) opioid overdose 1 day #2 ea quetiapine 100 mg tablet 100 mg PO DAILY #0 tabs 01/31/23 quetiapine 300 mg tablet 300 mg PO BEDTIME #0 tabs 01/31/23 Allergies Allergy/AdvReac Type Severity Reaction Status Date / Time No Known Allergies Allergy Unverified 01/29/23 03:39 [No Known Allergies*] Review of Systems Review of Systems: Yes Other (Intoxicated) [facility] Past Medical History Medical History Alcohol dependence Alcohol withdrawal Bipolar 1 disorder with moderate lindsey Chronic post-traumatic stress disorder (PTSD) Social History Social History Household Members: Unknown / Unable to assess Housing: Apartment Do you presently have visiting nurse or other home services: No Unable to assess alcohol history related to: Unable to respond Alcohol intake: current Alcohol intake frequency: 3 or more drinks per day Patient Tobacco Use Status: Current everyday Tobacco user Tobacco use type: Cigarette Years Smoked: 18 e-Cigarette/Vaping Use: Never Used Second Hand Smoke Exposure: Yes Substance Use Type: Heroin, IV Drugs and Opiates Advance Directives: No Advance Directives Information Provided: No service: No Sexual orientation: Straight/Heterosexual Physical Exam Vital Signs: Vital Signs: Last Vital Signs Temp 97.5 F 02/24/23 23:07 Pulse 88 02/24/23 23:07 Resp 17 02/24/23 23:07 BP 103/69 02/24/23 23:07 Pulse Ox 97 02/24/23 23:07 O2 Del Method Room Air 02/24/23 23:07 BMI result Body Mass Index 29.8 Const: Other: Appearance: Somnolent, easily arousable, answering some questions Eyes: Pupils equal, dilated, round and reactive to light. ENT: Pharynx normal. Neck: In C-spine precautions, no palpable step-offs, reports no pain to palpation on the cervical spine. CVS: Normal heart rate and rhythm. Pulses normal. Normal S1 and S2 Respiratory: No respiratory distress. Breath sounds normal. No Wheezing. No rales Abdomen: Soft and nontender. No rigidity. No distention. Skin: Skin warm and dry. Normal skin color. Normal skin turgor. Extremities: No lower extremity edema. No Lacerations. No Rash Neuro: Speech is slightly slurred, CN 2 through 12 grossly intact Psych: calm, cooperative, somnolent Course Course Course Narrative: -reviewing patient's medical records, patient has history of opiate abuse, cocaine, benzos and barbiturates abuse. -patient's head CT and cervical spine CT pending Medical Decision Making Medical Decision Making MDM Narrative: -CT scan of the head and neck did not show any acute abnormalities -reviewing patient's medical records, last time the patient was here, he tested positive for opiates, fentanyl, barbiturates, PCP, benzodiazepines, cocaine. Urinalysis is still pending at this time. -patient more awake, easily arousable, vital stable -plan: Metabolize to freedom Radiology Impression Discussion of test interpretation with radiology: I have reviewed the radiologist's reading. Radiologist Impression: FINDINGS: Head: There is no evidence of acute intracranial hemorrhage or territorial infarction. No abnormal mass effect or midline shift is seen. Coombs to white matter differentiation is well preserved. No extra-axial fluid collections are identified. No hydrocephalus. No significant volume loss. There is no abnormal attenuation within the brain parenchyma. No acute osseous or soft tissue abnormality. The mastoid air cells and visualized portions of the paranasal sinuses are well aerated. Cervical spine: There is anatomic alignment of the vertebral bodies and posterior elements. The atlantoaxial and atlantooccipital articulations are intact. Vertebral body heights and intervertebral disc spaces are maintained.? No evidence of acute fracture. No prevertebral soft tissue swelling. Visualized portions of the lung apices are unremarkable. The thyroid gland is unremarkable. CT/CT cervical spine wo IV con IMPRESSION: *? No acute intracranial bleed or territorial infarction. *? No acute fractures of the calvarium or cervical spine. ? Discharge Plan Discharge Clinical Impression: Substance abuse Patient Disposition: Still a Patient Instructions: Polysubstance Abuse (ED) Additional Instructions: Please follow-up with your primary care physician tomorrow. If you have any worsening or new symptoms, please return to the emergency room or call 911 Prescriptions: No Action methadone 10 mg/mL Concentrate 85 mg PO DAILY gabapentin 600 mg tablet 600 mg PO TID hydroxyzine pamoate 50 mg capsule 100 mg PO BID pantoprazole 40 mg tablet,delayed release (DR/EC) 40 mg PO DAILY bupropion HCl 75 mg tablet 150 mg PO BID mirtazapine 15 mg tablet 15 mg PO BEDTIME clonidine HCl 0.1 mg tablet 0.1 mg PO BID quetiapine 300 mg Tablet 300 mg PO BEDTIME Qty: 0 0RF hydroxyzine HCl 50 mg Tablet 100 mg PO BEDTIME Qty: 0 0RF naloxone [Narcan] 4 mg/actuation [place],Non-Aerosol 4 mg intranasal (ALT) ONCE PRN (Reason: opioid overdose) 1 Days Qty: 2 0RF quetiapine 100 mg Tablet 100 mg PO DAILY Qty: 0 0RF
--- NOTE | 2023-02-24 22:00 | PC.NURSE ---
PER CLOTH STRETCHER PT DID NOT NEED TO BE CHANGED OVER AND BELONGINGS SECURED DUE TO C COLLAR PLACEMENT
--- NOTE | 2023-02-24 22:07 | PC.NURSE ---
this rn assumed care of pt @ 2040. pt calm and cooperative. awakes to verbal stimuli. apt seen by ed provider. pt remains in c collar. pt awaiting results from CT scan
[2023-02-24 23:07] VITALS: BP 103/69; PULSE 88; RESP 17; TEMP 36.4; O2SAT 97
--- NOTE | 2023-02-25 02:00 | PC.NURSE ---
pt awoke at discharge. vss. pt ambulatory. security at bedside for standby assist per this rn request as pt was not changed over due to c collar. pt calm and cooperative. pt provided with discharge packet. pt verbalized understanding of discharge packet.
[2023-02-25 02:02] VITALS: BP 110/76; PULSE 76; RESP 16; TEMP 36.4; O2SAT 96
== END 2023-02-25 02:03 | disposition home or self-care (01) ==
PROVIDERS: Emergency Provider Emergency Medicine
DX: F19.10 Other psychoactive substance abuse, uncomplicated (principal); F17.210 Nicotine dependence, cigarettes, uncomplicated; F10.20 Alcohol dependence, uncomplicated
CPT/HCPCS: 70450; 72125; 99284

== ENCOUNTER 2023-02-25 04:45 | Emergency (ER) | payer OTHER, SELFPAY ==
[2023-02-25 04:53] VITALS: BP 100/60; BP 105/70; PULSE 74; PULSE 77; RESP 16; TEMP 36.7; O2SAT 96; BMI 28.0
[2023-02-25 04:58] VITALS: BP 105/70; PULSE 77; RESP 16; TEMP 36.7; O2SAT 96
--- NOTE | 2023-02-25 07:34 | ED_ITS ---
HPI - Alcohol General Chief Complaint: ETOH/Substance Use Stated Complaint: Etoh Time Seen by Provider: 02/25/23 06:29 Source: patient, EMS and old records reviewed Mode of arrival: EMS Limitations: no limitations History of Present Illness HPI narrative: 32-year-old male with history of polysubstance abuse currently on methadone, bipolar 1, PTSD who presents to the ER for the 2nd time within 12 hours for evaluation of substance use after he was found intoxicated on the ground. Patient was initially seen last evening around 09:00 o'clock after he was found the ground by the police department. He admitted to using heroin and alcohol. He had CT scans of his head and neck performed which were unremarkable. He was closely observed and discharged once sober. Patient presents back to the ER today at 05:00 after he was found sleeping on the ground. Patient admitted to additional alcohol use. He did not require any Narcan. Patient states he usually drinks about 2 pt of alcohol per day, or whenever he can get his hands on. He states he also uses multiple drugs including heroin, klonopin and cocaine. He states he is currently on methadone, last got his 100 mg dose yesterday. He goes to [facility]. MD complaint: alcohol intoxication Last drink: Just prior to admission Chronic alcohol use: Yes Previous visits for alcohol intoxication: Yes Recent trauma: No Associated symptoms: denies other symptoms Treatments prior to arrival: none Related Data Home Medications Medication Instructions Recorded Confirmed bupropion HCl 75 mg tablet 150 mg PO BID 01/29/23 01/29/23 clonidine HCl 0.1 mg tablet 0.1 mg PO BID 01/29/23 01/29/23 gabapentin 600 mg tablet 600 mg PO TID 01/29/23 01/29/23 hydroxyzine pamoate 50 mg capsule 100 mg PO BID 01/29/23 01/29/23 methadone 10 mg/mL oral concentrate 85 mg PO DAILY 01/29/23 01/29/23 mirtazapine 15 mg tablet 15 mg PO BEDTIME 01/29/23 01/29/23 pantoprazole 40 mg tablet,delayed 40 mg PO DAILY 01/29/23 01/29/23 release Previous Rx's Medication Instructions Recorded hydroxyzine HCl 50 mg tablet 100 mg PO BEDTIME #0 tabs 01/31/23 naloxone 4 mg/actuation nasal 4 mg intranasal (ALT) ONCE PRN 01/31/23 spray (Narcan) opioid overdose 1 day #2 ea quetiapine 100 mg tablet 100 mg PO DAILY #0 tabs 01/31/23 quetiapine 300 mg tablet 300 mg PO BEDTIME #0 tabs 01/31/23 Allergies Allergy/AdvReac Type Severity Reaction Status Date / Time No Known Allergies Allergy Unverified 01/29/23 03:39 [No Known Allergies*] Review of Systems Review of Systems: Yes all other systems are reviewed and are negative PMFSH Past Medical History Medical History Alcohol dependence Alcohol withdrawal Bipolar 1 disorder with moderate lindsey Chronic post-traumatic stress disorder (PTSD) Social History Social History Household Members: Unknown / Unable to assess Housing: Apartment Do you presently have visiting nurse or other home services: No Unable to assess alcohol history related to: Unable to respond Alcohol intake: current Alcohol intake frequency: 3 or more drinks per day Patient Tobacco Use Status: Current everyday Tobacco user Tobacco use type: Cigarette Years Smoked: 18 Smoked in Last 30 Days: Yes e-Cigarette/Vaping Use: Never Used Second Hand Smoke Exposure: Yes Use of substances other than those prescribed or required for medical reasons: Yes Substance Use Type: Heroin and Marijuana Advance Directives: No Advance Directives Information Provided: No service: No Sexual orientation: Straight/Heterosexual Physical Exam ED Vital Signs: Vital Signs - 24 hr 02/25/23 04:53 02/25/23 04:58 02/25/23 08:16 Temperature 98.1 F 98.1 F Pulse Rate 77 77 73 Respiratory Rate 16 16 16 Blood Pressure 105/70 105/70 102/60 Pulse Oximetry 96 96 95 Oxygen Delivery Method Room Air Room Air Room Air BMI result Body Mass Index 28.0 Appearance: lethargic. Oriented X3. No acute distress. Head: normocephalic, atraumatic. Eyes: Pupils dilated 4mm bilaterally equal, round and reactive to light. ENT: Pharynx normal. No tonsillar swelling or exudate. Neck: Normal inspection. Neck supple. CVS: Normal heart rate and rhythm. Pulses normal. Respiratory: No respiratory distress. Breath sounds normal. Abdomen: Soft and nontender. +BS x4 Skin: Skin warm and dry. Normal skin color. Normal skin turgor. No rashes. Extremities: No lower extremity edema. No joint swelling. Neuro/psych: arouses to voice and answers questions appropriately. Oriented X 3. No motor deficit. No sensory deficit. CN II-XII intact.slightly slurred speech. no SI Course Reevaluation(s) Reevaluation #1: Patient is wanting detox. His last urine toxicology from January was positive for every illicit substance except for marijuana and amphetamines. His current CIWA is 0. Will get Addiction Medicine/recovery to see him. Will place him physician observation at this time. His vital signs are stable. Will continue monitor. Time: 08:34 Reevaluation #2: Patient now reporting suicidal ideation and did not want to engage further. To be moved to the behavioral pod. Time: 10:14 Medical Decision Making Medical Decision Making [facility] Narrative: 32-year-old male with history of polysubstance abuse on methadone and daily alcohol abuse presents to the ER for evaluation after he was found on the ground sleeping for the 2nd time in 12 hours. He was seen in the ER earlier last evening for the same. He had a CT scan of his head and neck. He was discharged once sober. Patient now arrives to the ER seeking detox. He admits to multiple substances and alcohol being used. Patient's basic labs are unremarkable. ETOH level negative at 10am today. utox still pending. dose of 105 mg methadone confirmed from his clinic, still very sleepy. will hold off on dosing right now. when recovery went to speak with him he reported suicidal thoughts. sent to pod for CARE team evaluation. physician observation continued. Differential Diagnosis Differential Diagnoses: The differential diagnosis associated with the presentation includes polysubstance abuse, alcohol intoxication, alcohol use disorder, opiate withdr awal, alcohol withdrawal Admission/Observation Consideration of admission/observation: Escalation of care including admission/observation considered active SI Lab Data [facility] Lab Attestation statement: I reviewed the patient's lab results. medically cleared 02/25/23 10:17 02/25/23 10:17 Labs: Lab Results 02/25/23 02/25/23 02/25/23 Range/Units 09:15 10:17 10:17 WBC 5.4 (4.8-10.8) X10*3/uL RBC 5.43 (4.60-5.80) X10*6/uL Hgb 14.3 (14.0-18.0) g/dl Hct 43.3 (42.0-52.0) % MCV 79.7 L (80.0-98.0) fL MCH 26.3 L (27.0-33.0) pg MCHC 33.0 (31.0-36.0) g/dl RDW 13.4 (11.0-16.0) % Plt Count 228 (160-400) X10*3/uL MPV 9.4 (9.4-12.4) fL Immature Gran % (Auto) 0.0 (0.0-0.4) % Neut % (Auto) 41.7 L (45-73) % Lymph % (Auto) 45.3 H (20-40) % [place] % (Auto) 9.6 (2-11) % Eos % (Auto) 2.8 (0-4) % Baso % (Auto) 0.6 (0-2) % Lymph # (Auto) 2.5 (1.2-4.9) X10*3/uL [place] # (Auto) 0.5 (0.1-1.2) X10*3/uL Eos # (Auto) 0.2 (0.0-0.4) X10*3/uL Baso # (Auto) 0.0 (0.0-0.2) X10*3/uL Abs Immat Gran (auto) 0.00 (0.00-0.03) X10*3/uL Absolute Neuts (auto) 2.3 (2.0-8.3) x10*3/uL Absolute Nucleated RBC 0.000 (0.0-0.012) X10*3/uL Nucleated RBC % (auto) 0.0 (0.0-0.2) /100WBC Sodium 140 (135-145) mmol/L Potassium 4.2 (3.3-5.1) mmol/L Chloride 105 (96-108) mmol/L Carbon Dioxide 26 (22-29) mmol/L Anion Gap 13 (12-20) BUN 29 H (9-16) mg/dL Creatinine 1.11 (0.5-1.4) mg/dL Estim Creat Clear Calc 108.2 Estimated GFR > 60 Random Glucose 131 H (60-115) mg/dL Calcium 10.1 D (8.4-10.2) mg/dL Magnesium 2.5 (1.6-2.6) mg/dL Total Bilirubin 0.7 (0.0-1.0) mg/dL Direct Bilirubin 0.1 (0.0-0.5) mg/dL AST 25 (5-37) U/L ALT 15 (0-40) U/L Alkaline Phosphatase 87 (39-117) U/L Total Protein 8.4 H (6.5-8.0) g/dL Albumin 4.6 (3.5-5.0) g/dL Ethyl Alcohol mg/dL COVID-19 ([facility]) Negative (Negative) COVID-19 Clin Com See Note 02/25/23 Range/Units 10:17 WBC (4.8-10.8) X10*3/uL RBC (4.60-5.80) X10*6/uL Hgb (14.0-18.0) g/dl Hct (42.0-52.0) % MCV (80.0-98.0) fL MCH (27.0-33.0) pg MCHC (31.0-36.0) g/dl RDW (11.0-16.0) % Plt Count (160-400) X10*3/uL MPV (9.4-12.4) fL Immature Gran % (Auto) (0.0-0.4) % Neut % (Auto) (45-73) % Lymph % (Auto) (20-40) % [place] % (Auto) (2-11) % Eos % (Auto) (0-4) % Baso % (Auto) (0-2) % Lymph # (Auto) (1.2-4.9) X10*3/uL [place] # (Auto) (0.1-1.2) X10*3/uL Eos # (Auto) (0.0-0.4) X10*3/uL Baso # (Auto) (0.0-0.2) X10*3/uL Abs Immat Gran (auto) (0.00-0.03) X10*3/uL Absolute Neuts (auto) (2.0-8.3) x10*3/uL Absolute Nucleated RBC (0.0-0.012) X10*3/uL Nucleated RBC % (auto) (0.0-0.2) /100WBC Sodium (135-145) mmol/L Potassium (3.3-5.1) mmol/L Chloride (96-108) mmol/L Carbon Dioxide (22-29) mmol/L Anion Gap (12-20) BUN (9-16) mg/dL Creatinine (0.5-1.4) mg/dL Estim Creat Clear Calc Estimated GFR Random Glucose (60-115) mg/dL Calcium (8.4-10.2) mg/dL Magnesium (1.6-2.6) mg/dL Total Bilirubin (0.0-1.0) mg/dL Direct Bilirubin (0.0-0.5) mg/dL AST (5-37) U/L ALT (0-40) U/L Alkaline Phosphatase (39-117) U/L Total Protein (6.5-8.0) g/dL Albumin (3.5-5.0) g/dL Ethyl Alcohol < 10 mg/dL COVID-19 ([facility]) (Negative) COVID-19 Clin Com Independent Historian Clinical information obtained from an independent historian. History obtained from or confirmed by: EMS External Record Review External record reviewed: Outpatient record and Prior outpatient labs Chronic Conditions Patient?s care impacted by: Other (polysubstance abuse) Social Determinants Patient?s care significantly limited by Social Determinants of Health including: Alcoholism and drug addiction in family, Problems related to primary support group and Other Social Determinant of Health Critical Care Time Critical Care Time Critical Care Time: No Discharge Plan Discharge Clinical Impression: Alcoholic intoxication, Polysubstance abuse Patient Disposition: Still a Patient Prescriptions: No Action methadone 10 mg/mL Concentrate 85 mg PO DAILY gabapentin 600 mg tablet 600 mg PO TID hydroxyzine pamoate 50 mg capsule 100 mg PO BID pantoprazole 40 mg tablet,delayed release (DR/EC) 40 mg PO DAILY bupropion HCl 75 mg tablet 150 mg PO BID mirtazapine 15 mg tablet 15 mg PO BEDTIME clonidine HCl 0.1 mg tablet 0.1 mg PO BID quetiapine 300 mg Tablet 300 mg PO BEDTIME Qty: 0 0RF hydroxyzine HCl 50 mg Tablet 100 mg PO BEDTIME Qty: 0 0RF naloxone [Narcan] 4 mg/actuation [place],Non-Aerosol 4 mg intranasal (ALT) ONCE PRN (Reason: opioid overdose) 1 Days Qty: 2 0RF quetiapine 100 mg Tablet 100 mg PO DAILY Qty: 0 0RF
[2023-02-25 08:16] VITALS: BP 102/60; PULSE 73; RESP 16; O2SAT 95
--- NOTE | 2023-02-25 08:20 | PC.NURSE ---
pt quite sleepy but arousble to voice command, respirations even and unlabored, eyes slightly pinpoint, asked the pt if he is interested in detox originally states that he does not want detox, but then states that yes he is interested in detox, when asked which substance pt states everything. Esther CUEVAS notified of this request
--- NOTE | 2023-02-25 09:03 | PC.NURSE ---
called [facility] in [place] to verify the pt's last dose, got dosed on February 23 and 105mg, spoke to Richard VALIENTE
--- NOTE | 2023-02-25 09:20 | MHC.EDTECH ---
Tech tried X2 for lab work, Used heat and Vein finder - Patient is a hard stick, when I did get a flash it was a delayed draw, unable to collect specimen. RN aware
[2023-02-25 09:40] LABS: COVID-19 Test Negative (Negative); IDNOW Serial# 6674DD1D
[2023-02-25 10:21] LABS: MANUAL DIFF FLAG NO
[2023-02-25 10:23] LABS: Basophils Percent Auto 0.6 % (0-2); Eosinophils Absolute Auto 0.2 X10*3/uL (0.0-0.4); Eosinophils Percent Auto 2.8 % (0-4); Hematocrit 43.3 % (42.0-52.0); Hemoglobin 14.3 g/dl (14.0-18.0); Lymphocytes Absolute Auto 2.5 X10*3/uL (1.2-4.9); Lymphocytes Percent Auto 45.3 % (20-40); Mean Corpuscular Hemoglobin 26.3 pg (27.0-33.0); Mean Corpuscular Volume 79.7 fL (80.0-98.0); Mean Platelet Volume 9.4 fL (9.4-12.4); Monocytes Absolute Auto 0.5 X10*3/uL (0.1-1.2); Monocytes Percent Auto 9.6 % (2-11); Neutrophils Absolute Auto 2.3 x10*3/uL (2.0-8.3); Neutrophils Percent Auto 41.7 % (45-73); Platelet Count 228 X10*3/uL (160-400); Red Blood Count 5.43 X10*6/uL (4.60-5.80); Red Cell Distribution Width 13.4 % (11.0-16.0); White Blood Count 5.4 X10*3/uL (4.8-10.8)
[2023-02-25 11:00] LABS: Alanine Aminotransferase 15 U/L (0-40); Albumin Level 4.6 g/dL (3.5-5.0); Alkaline Phosphatase 87 U/L (39-117); Anion Gap 13 (12-20); Aspartate Amino Transferase 25 U/L (5-37); Bilirubin Direct 0.1 mg/dL (0.0-0.5); Bilirubin Total 0.7 mg/dL (0.0-1.0); Blood Urea Nitrogen 29 mg/dL (9-16); Calcium 10.1 mg/dL (8.4-10.2); Carbon Dioxide 26 mmol/L (22-29); Chloride 105 mmol/L (96-108); Creatinine Clr Calc Pharmacy 108.2; Estimated Glomerular Filt Rate > 60; Ethanol < 10 mg/dL; Glucose Random 131 mg/dL (60-115); Magnesium 2.5 mg/dL (1.6-2.6); Potassium 4.2 mmol/L (3.3-5.1); Sodium 140 mmol/L (135-145); Total Protein 8.4 g/dL (6.5-8.0)
--- NOTE | 2023-02-25 12:36 | MHC.RECOVSUP ---
Attempted to meet with pt for NACHO and pt informs he has been using Benzos opiates and alcohol. Pt then informs SI and requests to rest. T/W informed provider and Care Team to follow up with pt.
--- NOTE | 2023-02-25 12:54 | PC.NURSE ---
Received pt from main ED, pt here for being found intoxicated, then started to report SI after being here for a little while. Pt transferred to Pod. Once pt here, endorsed that he purposely tried to OD last night taking 40 pills because he didn't want to live anymore. Pt reports he has had these thoughts before, but last night was the first time he acted on them. Stated if he was released he would do it again. Pt currently sleeping in bed, safety measures in place, pt was already changed over from security.
--- NOTE | 2023-02-25 14:33 | MHC.CARE ---
T/w met with patient regarding his suicidal statements. Patient clarifies that when detoxing and withdrawing it feels so awful that he feels he would rather be . He confirms that the last time he was on the inpatient unit he used while admitted and agrees that going to detox is the best option for him given the fairly unrelenting severity of his substance abuse, to the degree that he snuck a bag of heroin on to the unit and used despite being given withdrawal/ comfort medication. He reports he can be safe at a detox and would like this facility to pursue detox LOC at this time. He denies HI, denies AH/ VH and does not appear to be responding to internal stimuli. He is future oriented toward getting his next dose. His mood is terrible and his affect restricted. He admitted to this ED 02/24/23 and was d/c only to return again, intoxicated. Patient's risk appears to largely revolve around his use though at this time.
[2023-02-25] MEDS: methADONE HCl 20 MG/2 ML ORAL.CONC 100 MG PO (15:30)
--- NOTE | 2023-02-25 16:14 | MHC.RECOVSUP ---
Met with pt after being cleared by Care Team and pt informs he is not interested in detox at this time, he only wants Psych or section 35. Provider is aware.
[2023-02-25 16:23] VITALS: BP 101/76; PULSE 74; RESP 16; TEMP 36.6; O2SAT 95
--- NOTE | 2023-02-25 17:41 | MHC.CARE ---
T/w to fax patient assessment to [facility] for dual diagnosis inpt LOC. T [phone]
--- NOTE | 2023-02-25 18:23 | MHC.CARE ---
Faxed patient assessment for dual dx inpt treatment to the following facilities for their wait list: [facility]; [place]; [facility]. Verbal presentation gives to Arin Estrada in addition to the faxed assessment.
--- NOTE | 2023-02-26 | ECG_ITS ---
Test Reason : MED CLEARANCE Blood Pressure : / mmHG Vent. Rate : 068 BPM Atrial Rate : 068 BPM P-R Int : 174 ms QRS Dur : 122 ms QT Int : 430 ms P-R-T Axes : 044 063 023 degrees QTc Int : 457 ms Normal sinus rhythm Non-specific intra-ventricular conduction delay T wave abnormality, consider anterior ischemia Abnormal ECG When compared with ECG of 29-JAN-2023 01:45, No significant changes seen Referred By: Emilia Castañeda Electronically Signed By:RON VARGAS
[2023-02-26 08:38] VITALS: BP 134/81; PULSE 103; RESP 16; TEMP 36.5; O2SAT 95
[2023-02-26 09:03] LABS: Appearance Urine Clear; Color Urine Dark Yellow; Glucose Urine UA Negative (Negative); Leukocyte Esterase Urine Trace (Negative); Nitrite Urine Negative (Negative); Specific Gravity - Urine >= 1.030 (1.005-1.025); UMIC TRIGGER UACC YES; Urine Blood Negative (Negative); Urine Ketones Trace mg/dL (Negative); Urine Protein Negative (Neg-Trace)
--- NOTE | 2023-02-26 09:06 | HE.PHANOTE ---
RE METHADONE 105MG FROM [facility] LAST DOSED 02/23/2023 HARD[facility]
[2023-02-26 09:08] LABS: Amphetamine Screen Urine Not Detected (Not Detect); Barbiturates, Urine POSITIVE (Not Detect); Benzodiazepines Screen Urine POSITIVE (Not Detect); Cannabinoid Screen Urine Not Detected (Not Detect); Cocaine Screen Urine POSITIVE (Not Detect); Fentanyl, urine POSITIVE (Not Detect); Opiate Screen Urine POSITIVE (Not Detect); Phencyclidine Screen Urine Not Detected (Not Detect)
[2023-02-26 09:09] LABS: Bacteria Urine None Seen (None Seen); RBC Urine 0-2 /HPF (0-2); Squamous Epithelial Cell Urine 0-2 /HPF (0-2); WBC Urine 0-5 /HPF (0-5)
[2023-02-26] MEDS: methADONE HCl 20 MG/2 ML ORAL.CONC 105 MG PO (09:23)
[2023-02-26] MEDS: buPROPion HCL 75 MG TABLET 150 MG PO ×2 (09:34→21:29)
[2023-02-26] MEDS: Gabapentin 600 MG TABLET PO ×3 (09:34→21:29)
[2023-02-26] MEDS: cloNIDine HCL 0.1 MG TABLET PO ×2 (09:34→21:29)
[2023-02-26] MEDS: hydrOXYzine HCL 25 MG TABLET PO ×4 (09:35→21:29)
[2023-02-26] MEDS: hydrOXYzine HCL 50 MG TABLET 100 MG PO ×2 (09:35→21:29)
--- NOTE | 2023-02-26 14:14 | PC.NURSE ---
pt to go to [facility] tomorrow 02/27 - [facility] unsure of time they are able to accept pt at this time.
[2023-02-26 14:45] VITALS: BP 109/72; PULSE 78; RESP 14; O2SAT 94
--- NOTE | 2023-02-26 17:33 | PC.NURSE ---
Patient endorsed suicidal ideation all shift without plan. Patient pleasant when interacting with staff. Patient isolative to room all shift and came out for crackers and juice.
[2023-02-26] MEDS: Prazosin HCL 1 MG CAPSULE PO (21:29)
[2023-02-26] MEDS: Mirtazapine 15 MG TABLET PO (21:29)
[2023-02-26 21:37] VITALS: BP 110/73; PULSE 74; RESP 20; TEMP 36.9; O2SAT 95
--- NOTE | 2023-02-26 21:49 | PC.NURSE ---
Patient currently in bed appears resting, compliant with HS medication, behavior non concerning, disposition per care team is voluntary EATS bed search, [facility] admission on hold per care team, VSS, will continue to monitor.
[2023-02-27 02:21] VITALS: BP 127/78; PULSE 85; RESP 16; TEMP 36; O2SAT 97
[2023-02-27] MEDS: Omeprazole 20 MG CAPSULE.DR PO (06:45)
[2023-02-27 07:56] VITALS: BP 97/61; PULSE 69; RESP 14; TEMP 36.6; O2SAT 96
[2023-02-27] MEDS: buPROPion HCL 75 MG TABLET 150 MG PO (08:14)
[2023-02-27] MEDS: Gabapentin 600 MG TABLET PO (08:15)
[2023-02-27] MEDS: methADONE HCl 20 MG/2 ML ORAL.CONC 105 MG PO (08:15)
[2023-02-27] MEDS: hydrOXYzine HCL 25 MG TABLET PO (08:15)
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
[2023-02-27] MEDS: Naloxone HCl Nasal TAKE HOME 4 MG SPRAY 8 MG NOSTRILALT (11:46)
== END 2023-02-27 11:46 | disposition home or self-care (01) ==
PROVIDERS: Physician Assistant; Emergency Provider Student in an Organized Health Care Education/Training Program
DX: F10.220 Alcohol dependence with intoxication, uncomplicated (principal); Y90.0 Blood alcohol level of less than 20 mg/100 ml; F19.10 Other psychoactive substance abuse, uncomplicated; Z20.822 Contact with and (suspected) exposure to COVID-19; F11.20 Opioid dependence, uncomplicated; F31.9 Bipolar disorder, unspecified; F43.10 Post-traumatic stress disorder, unspecified; F17.210 Nicotine dependence, cigarettes, uncomplicated; Z79.899 Other long term (current) drug therapy
CPT/HCPCS: 80048; 80076; 80307; 81001; 81003; 83735; 85025; 87635; 93005; 99285; S9485